=== PATIENT | male | born 1990 | race Hispanic/Latino ===

== ENCOUNTER 2021-07-21 20:18 | Emergency (ER) | payer SELFPAY ==
[2021-07-21] MEDS ORDERED: traMADol HCl 50 MG TAB ONE (21:01)
[2021-07-21] MEDS ORDERED: Ketorolac Tromethamine 30 MG/ML VIAL ONE ×2 (21:02→21:07)
[2021-07-21] MEDS ORDERED: predniSONE 20 MG TAB ONE (21:02)
[2021-07-21] MEDS ORDERED: Cyclobenzaprine 10 MG TAB ONE (21:02)
[2021-07-22] MEDS ORDERED: Lorazepam 2 MG/ML VIAL ONE (04:23)
== END 2021-07-21 21:20 | disposition home or self-care (01) ==
LOC: ERS 20:18
DX: M54.50 Low back pain, unspecified (principal); Z87.891 Personal history of nicotine dependence
CPT/HCPCS: 96372; 99283; J1885; J7512

== ENCOUNTER 2023-02-12 18:21 | Inpatient (IN) | payer SELFPAY ==
[2023-02-12 18:56] LABS: #Basophils 0.1 thou/uL (0.0-0.2); #Monocytes 0.8 thou/uL (0.11-0.59); %Basophils 1.3 % (0.0-1.0); %Eosinophils 0.6 % (0.0-10.0); %Lymphocytes 14.2 % (21.0-51.0); %Neutrophils 72.5 % (42.0-75.0); Hematocrit 37.7 % (42.0-52.0); Hemoglobin 13.5 g/dL (14.0-18.0); Mean Corpuscular HGB CONC 35.8 g/dL (32.0-36.0); Mean Corpuscular Hemoglobin 35.2 pg (27.0-31.0); Mean Corpuscular Volume 98.2 fl (78.0-98.0); Mean Platelet Volume 11.7 fL (7.4-10.4); RBC Distribution Width 12.5 % (11.5-14.5); Red Blood Cell (RBC) Count 3.84 mill/uL (4.70-6.10); White Blood Cell (WBC) Count 6.9 10x3/uL (4.8-10.8)
[2023-02-12 19:03] LABS: Platelet Count 60 10x3/uL (130-400)
[2023-02-12 19:29] LABS: ALT (SGPT) 70 U/L (8-55); AST (SGOT) 277 U/L (5-34); Albumin 3.2 g/dL (3.5-5.0); Alkaline Phosphatase 200 U/L (40-110); Anion Gap 15 mmol/L (10-20); BUN (Urea Nitrogen) 4 mg/dL (8.9-20.6); Bilirubin, Total 8.5 mg/dL (0.2-1.2); Calc. Creatinine Clearance 0 mL/min (70-130); Calcium 8.1 mg/dL (7.8-10.44); Carbon Dioxide 26 mmol/L (22-29); Chloride 94 mmol/L (98-107); Estimated GFR 128; Globulin 4.2 g/dL (2.4-3.5); Glucose 102 mg/dL (70-105); Lipase 109 U/L (8-78); Magnesium 1.2 mg/dL (1.6-2.6); Potassium 3.1 mmol/L (3.5-5.1); Protein, Total 7.4 g/dL (6.0-8.3); Sodium 132 mmol/L (136-145)
[2023-02-12] MEDS ORDERED: Folic Acid 1 MG TAB ONE (20:07)
[2023-02-12] MEDS ORDERED: Potassium Chloride 20 MEQ TAB ONE (20:07)
[2023-02-12] MEDS ORDERED: Magnesium 2 GM/50 ML BAG (IN WATER) ONE (20:08)
[2023-02-12] MEDS ORDERED: LORazepam 2 MG/ML SYR.(CARPUJECT) ONE (20:08)
[2023-02-12] MEDS ORDERED: Thiamine 100 MG TAB ONE (20:08)
[2023-02-12 20:37] LABS: Bacteria/HPF None Seen HPF (None Seen); Bilirubin 3+ (Negative); Blood, Urine 1+ (Negative); CAUTI Indications for Culture Alt mental st,lethar; Clarity Clear (Clear); Glucose, Urine (Dipstick) Normal (Negative); Ketone, Urine Negative (Negative); Leukocyte Negative Leu/uL (Negative); Nitrite Negative (Negative); Protein, Urine (Dipstick) 300 mg/dL (Neg-Trace); RBC/HPF 0-3 HPF (0-3); Specific Gravity, Urine 1.018 (1.002-1.036); Squamous Epithelial 0-3 HPF (0-3); Urobilinogen 6 mg/dL (Less than 2); WBC/HPF 0-3 HPF (0-3)
[2023-02-12 20:38] LABS: Urine Culture Reflex No No
[2023-02-12 20:39] LABS: Bilirubin, Direct 5.7 mg/dL (0.1-0.3)
[2023-02-12 23:22] LABS: INR-International Normal Ratio 1.4; Prothrombin Time 18.1 sec (12.0-14.7)
[2023-02-12 23:23] LABS: PTT 39.6 sec (22.9-36.1)
[2023-02-13] MEDS ORDERED: Lorazepam 2 MG/ML VIAL SLOW IVP PRN (00:23)
[2023-02-13] MEDS ORDERED: Ondansetron PF 4 MG/2 ML Vial IVP PRN (00:30)
[2023-02-13] MEDS ORDERED: Ondansetron ODT 4 MG TAB SL PRN (00:30)
[2023-02-13] MEDS: Lactated Ringer's 1,000 ML IV SCH ×2 (00:46→12:20)
[2023-02-13] MEDS ORDERED: Acetaminophen 325 MG TAB PO PRN (01:14)
[2023-02-13] MEDS ORDERED: Lorazepam 1 MG TAB PO PRN (01:15)
[2023-02-13] MEDS ORDERED: Electrolyte Replacement Protocol 1 EACH FS SCH (01:15)
[2023-02-13] MEDS ORDERED: Lorazepam 2 MG/ML VIAL IM PRN (01:15)
[2023-02-13] MEDS ORDERED: Ondansetron ODT 4 MG TAB PO PRN (01:15)
[2023-02-13] MEDS ORDERED: Thiamine HCl 200 MG/2 ML VIAL SLOW IVP SCH ×2 (01:15→20:30)
[2023-02-13] MEDS ORDERED: Magnesium Sulfate In Water 4 GM in Premix 1 BAG IVPB SCH (01:30)
[2023-02-13] MEDS ORDERED: Potassium Chloride 20 MEQ TAB PO SCH (01:30)
[2023-02-13] MEDS ORDERED: Acetaminophen 500 MG TAB PO PRN (01:30)
[2023-02-13] MEDS: Lorazepam 1 MG TAB PO SCH ×4 (01:48→20:32)
[2023-02-13] MEDS ORDERED: Magnesium 2 GM/50 ML(in water) 2 GM in Premix 1 BAG IVPB SCH ×2 (02:15→14:00)
[2023-02-13 05:04] LABS: #Basophils 0.1 thou/uL (0.0-0.2); #Eosinphils 0.2 thou/uL (0.0-0.7); #Neutrophils 4.7 thou/uL (1.40-6.50); %Eosinophils 2.3 % (0.0-10.0); %Lymphocytes 14.9 % (21.0-51.0); %Monocytes 14.3 % (0.0-10.0); %Neutrophils 67.1 % (42.0-75.0); Hematocrit 34.5 % (42.0-52.0); Hemoglobin 12.2 g/dL (14.0-18.0); Mean Corpuscular HGB CONC 35.4 g/dL (32.0-36.0); Mean Corpuscular Hemoglobin 35.4 pg (27.0-31.0); Mean Platelet Volume 11.8 fL (7.4-10.4); RBC Distribution Width 12.7 % (11.5-14.5); Red Blood Cell (RBC) Count 3.45 mill/uL (4.70-6.10)
[2023-02-13 05:10] LABS: Platelet Count 56 10x3/uL (130-400)
[2023-02-13 05:19] LABS: Phosphorus 2.1 mg/dL (2.3-4.7)
[2023-02-13 05:21] LABS: ALT (SGPT) 65 U/L (8-55); AST (SGOT) 235 U/L (5-34); Albumin 2.8 g/dL (3.5-5.0); Alkaline Phosphatase 168 U/L (40-110); Anion Gap 14 mmol/L (10-20); BUN (Urea Nitrogen) 5 mg/dL (8.9-20.6); Bilirubin, Total 7.7 mg/dL (0.2-1.2); Calc. Creatinine Clearance 237 mL/min (70-130); Calcium 7.5 mg/dL (7.8-10.44); Carbon Dioxide 24 mmol/L (22-29); Chloride 98 mmol/L (98-107); Estimated GFR 131; Globulin 3.7 g/dL (2.4-3.5); Glucose 80 mg/dL (70-105); Lipase 108 U/L (8-78); Potassium 3.4 mmol/L (3.5-5.1); Protein, Total 6.5 g/dL (6.0-8.3); Sodium 133 mmol/L (136-145)
[2023-02-13] MEDS ORDERED: Lorazepam 1 MG TAB PO SCH (08:45)
[2023-02-13] MEDS: Folic Acid 1 MG TAB PO SCH (08:57)
[2023-02-13] MEDS: Multivit, Therapeutic 1 TAB PO SCH (08:57)
[2023-02-13 10:04] LABS: ALT (SGPT) 65 U/L (8-55); AST (SGOT) 238 U/L (5-34); Albumin 2.7 g/dL (3.5-5.0); Alkaline Phosphatase 177 U/L (40-110); Anion Gap 13 mmol/L (10-20); BUN (Urea Nitrogen) 5 mg/dL (8.9-20.6); Calc. Creatinine Clearance 233 mL/min (70-130); Calcium 7.5 mg/dL (7.8-10.44); Carbon Dioxide 22 mmol/L (22-29); Chloride 101 mmol/L (98-107); Estimated GFR 131; Globulin 3.7 g/dL (2.4-3.5); Glucose 82 mg/dL (70-105); Magnesium 1.7 mg/dL (1.6-2.6); Phosphorus 2.2 mg/dL (2.3-4.7); Potassium 3.8 mmol/L (3.5-5.1); Protein, Total 6.4 g/dL (6.0-8.3); Sodium 132 mmol/L (136-145)
[2023-02-13 10:15] VITALS: BMI 30.8
[2023-02-14] MEDS ORDERED: Lorazepam 1 MG TAB PO PRN (01:15)
[2023-02-14] MEDS: Lorazepam 1 MG TAB PO SCH ×3 (01:47→13:40)
[2023-02-14 04:59] LABS: #Basophils 0.1 thou/uL (0.0-0.2); #Eosinphils 0.2 thou/uL (0.0-0.7); #Monocytes 1.1 thou/uL (0.11-0.59); #Neutrophils 4.2 thou/uL (1.40-6.50); %Basophils 0.9 % (0.0-1.0); %Monocytes 15.9 % (0.0-10.0); %Neutrophils 61.9 % (42.0-75.0); Hematocrit 35.7 % (42.0-52.0); Hemoglobin 12.5 g/dL (14.0-18.0); Mean Platelet Volume 11.8 fL (7.4-10.4); RBC Distribution Width 12.7 % (11.5-14.5); Red Blood Cell (RBC) Count 3.57 mill/uL (4.70-6.10); White Blood Cell (WBC) Count 6.7 10x3/uL (4.8-10.8)
[2023-02-14 05:10] LABS: Platelet Count 71 10x3/uL (130-400)
[2023-02-14 05:25] LABS: ALT (SGPT) 61 U/L (8-55); AST (SGOT) 202 U/L (5-34); Albumin 2.7 g/dL (3.5-5.0); Alkaline Phosphatase 201 U/L (40-110); Anion Gap 14 mmol/L (10-20); BUN (Urea Nitrogen) 5 mg/dL (8.9-20.6); Bilirubin, Total 8.6 mg/dL (0.2-1.2); Calc. Creatinine Clearance 222 mL/min (70-130); Calcium 7.6 mg/dL (7.8-10.44); Carbon Dioxide 22 mmol/L (22-29); Chloride 102 mmol/L (98-107); Estimated GFR 129; Globulin 3.6 g/dL (2.4-3.5); Glucose 73 mg/dL (70-105); Magnesium 1.7 mg/dL (1.6-2.6); Potassium 3.8 mmol/L (3.5-5.1); Protein, Total 6.3 g/dL (6.0-8.3); Sodium 134 mmol/L (136-145)
[2023-02-14] MEDS ORDERED: Magnesium 2 GM/50 ML(in water) 2 GM in Premix 1 BAG IVPB SCH (08:00)
[2023-02-14] MEDS: Folic Acid 1 MG TAB PO SCH (09:23)
[2023-02-14] MEDS: Multivit, Therapeutic 1 TAB PO SCH (09:23)
[2023-02-14] MEDS ORDERED: Lorazepam 1 MG TAB PO SCH (09:30)
[2023-02-14 16:09] VITALS: BP 140/80; TEMP 99.2
[2023-02-15] MEDS ORDERED: Lorazepam 0.5 MG TAB PO SCH (01:15)
[2023-02-15] MEDS ORDERED: Lorazepam 1 MG TAB PO PRN (01:15)
[2023-02-16] MEDS ORDERED: Lorazepam 0.5 MG TAB PO PRN (01:15)
[2023-02-16] MEDS ORDERED: Thiamine 100 MG TAB PO SCH (09:00)
[2023-02-16] MEDS ORDERED: FLU VACC QS2023-24(6MOS UP)/PF 60 MCG/0.5 ML SYRINGE IM ONE (09:00)
== END 2023-02-14 17:00 | disposition home or self-care (01) | DRG 897 ==
LOC: ERS 18:21 → ERHOLD 22:08 → 2NO 02-13 00:13
PROVIDERS: ADMIT Internal Medicine; ATTEND Internal Medicine
DX: F10.239 Alcohol dependence with withdrawal, unspecified (principal); K76.6 Portal hypertension; F41.9 Anxiety disorder, unspecified; E87.6 Hypokalemia; E83.42 Hypomagnesemia; G89.29 Other chronic pain; K70.31 Alcoholic cirrhosis of liver with ascites; F12.929 Cannabis use, unspecified with intoxication, unspecified; R74.8 Abnormal levels of other serum enzymes; D69.6 Thrombocytopenia, unspecified; Z87.891 Personal history of nicotine dependence; Z79.899 Other long term (current) drug therapy
CPT/HCPCS: 36415; 76705; 80053; 81001; 82248; 83690; 83735; 84100; 84443; 85025; 85610; 85730; 93005; J2060; J3411; J3475; J7120

== ENCOUNTER 2023-10-19 01:05 | Inpatient (IN) | payer SELFPAY ==
[2023-10-19] MEDS ORDERED: Ibuprofen 800 MG TAB ONE (01:23)
[2023-10-19] MEDS ORDERED: Piperacillin/Tazobactam 4.5 GM VIAL ONE (01:34)
[2023-10-19 02:01] LABS: Hematocrit 34.2 % (42.0-52.0); Hemoglobin 12.7 g/dL (14.0-18.0); Mean Corpuscular HGB CONC 37.1 g/dL (32.0-36.0); Mean Corpuscular Hemoglobin 31.4 pg (27.0-31.0); Mean Corpuscular Volume 84.7 fL (78.0-98.0); Mean Platelet Volume 9.8 fL (7.4-10.4); Platelet Count 194 10x3/uL (130-400); RBC Distribution Width 13.2 % (11.5-14.5); Red Blood Cell (RBC) Count 4.04 mill/uL (4.70-6.10)
[2023-10-19 02:10] LABS: Acetaminophen Less than 10 mcg/mL (10.0-30.0); Alcohol Less than 10.0 mg/dL (Less than 10); Salicylate Less than 8.0 mg/dL (15.0-30.0)
[2023-10-19 02:18] LABS: Influenza A by NAA Not Detected (NotDetected); Influenza B by NAA Not Detected (NotDetected); SARS-CoV-2 NAA Rapid Test Not Detected (NotDetected)
[2023-10-19 02:27] LABS: HBCM Index 0.11 S/CO (0-0.79); HBsAg Index 0.25 S/CO (0-0.99); Hep A IgM AB NONREACTIVE (NonReactive); Hep A IgM S/CO 0.34 S/CO (0-0.79); Hep B Surf Ag NONREACTIVE S/CO (NonReactive); Hep C IgG Ab NONREACTIVE S/CO (NonReactive); Hep C Index 0.12 S/CO (0-0.79); Hepatitis B Core IgM Abs NONREACTIVE S/CO (NonReactive)
[2023-10-19 02:40] LABS: ALT (SGPT) 36 U/L (8-55); AST (SGOT) 63 U/L (5-34); Albumin 2.7 g/dL (3.5-5.0); Alkaline Phosphatase 218 U/L (40-110); Anion Gap 13 mmol/L (10-20); BUN (Urea Nitrogen) 34 mg/dL (8.9-20.6); Bilirubin, Total 4.5 mg/dL (0.2-1.2); Calc. Creatinine Clearance 0 mL/min (70-130); Calcium 7.8 mg/dL (7.8-10.44); Carbon Dioxide 16 mmol/L (22-29); Chloride 85 mmol/L (98-107); Estimated GFR 93; Globulin 3.9 g/dL (2.4-3.5); Glucose 129 mg/dL (70-105); Potassium 4.7 mmol/L (3.5-5.1); Protein, Total 6.6 g/dL (6.0-8.3); Sodium 109 mmol/L (136-145)
[2023-10-19] MEDS ORDERED: cefTRIAXone (ROCEPHIN) 2 GM VIAL ONE (03:09)
[2023-10-19] MEDS ORDERED: Vancomycin 1 GM/200 ML (FROZEN) BAG ONE ×2 (03:09→08:19)
[2023-10-19] MEDS ORDERED: Sodium Chloride 0.9% 100 ML ONE (03:09)
[2023-10-19 03:42] LABS: Eosinophils 1 % (0-10); Lymphocytes 1 % (21-51); Monocytes 15 % (0-10); Neutrophil 75 % (42-75)
[2023-10-19 03:43] LABS: Band 8 % (5-11); Plasma Cells 0 % (0-0); Total Cell Count 100
[2023-10-19 05:59] LABS: Color Of CSF Supernatant COLORLESS (Colorless); Unspun CSF Color COLORLESS (Colorless)
[2023-10-19 06:00] LABS: Tube # 2
[2023-10-19 06:17] LABS: CSF, Glucose 6 mg/dl (40-70); CSF, Protein 61.4 mg/dL (15-40)
[2023-10-19 07:35] LABS: RBC Count-Automated (BF) 104 /cu.mm; WBC/Nucleated-Auto (BF) 219 /cu.mm
[2023-10-19 07:38] LABS: Body Fluid Source Ascites Body Fluid
[2023-10-19 07:39] LABS: Clarity Hazy (Clear); Tube # 3
[2023-10-19 07:40] LABS: BF Color Yellow
[2023-10-19 07:45] LABS: CSF Source CSF
[2023-10-19 07:46] LABS: CSF Source CSF; Clarity Clear (Clear); Tube # 1; Tube # 4
[2023-10-19] MEDS ORDERED: Ondansetron PF 4 MG/2 ML Vial IVP PRN (08:21)
[2023-10-19 08:56] LABS: Sodium 110 mmol/L (136-145)
[2023-10-19 10:13] LABS: HBSAB Concentration 8.73 mIU/mL; Hep B Surf AB GRAYZONE (NonReactive)
[2023-10-19] MEDS ORDERED: Iopamidol-370 76% 500 ML MDV (1 ML CHARGE) ONE (10:34)
[2023-10-19 10:43] LABS: Cell Count Non Hematic 18 %; Lymphocytes 44 %; Segmented Neutrophils 37 %
[2023-10-19 10:46] LABS: Lymphocytes 20 %; Segmented Neutrophils 80 %
[2023-10-19 10:49] VITALS: BMI 31.3
[2023-10-19 10:49] LABS: BF Segmented Neutrophils 58 %; Cell Count Non Hematic 14 %; Lymphocytes 28 %
[2023-10-19] MEDS: Vancomycin 1 GM in Premix 1 BAG IVPB SCH (11:20)
[2023-10-19] MEDS: Acetaminophen/Codeine 30-300mg Tablet PO PRN (11:40)
[2023-10-19] MEDS: Albumin 25% 25 GM (100 mL) BOT IVPB SCH (11:40)
[2023-10-19] MEDS: Famotidine 20 MG TAB PO SCH (11:40)
[2023-10-19] MEDS: Enoxaparin 40 MG (0.4 mL) SYRINGE SC SCH (11:40)
[2023-10-19 12:02] LABS: Bacteria/HPF None Seen HPF (None Seen); Bilirubin Negative (Negative); Blood, Urine 1+ (Negative); CAUTI Indications for Culture Alt mental st,lethar; Clarity Clear (Clear); Glucose, Urine (Dipstick) Normal (Negative); Ketone, Urine Negative (Negative); Leukocyte Negative Leu/uL (Negative); Nitrite Negative (Negative); Protein, Urine (Dipstick) Negative (Neg-Trace); RBC/HPF 0-3 HPF (0-3); Specific Gravity, Urine 1.011 (1.002-1.036); Squamous Epithelial None Seen HPF (0-3); Urobilinogen Normal mg/dL (Less than 2); WBC/HPF 0-3 HPF (0-3); pH, Urine 5.5 (5.0-9.0)
[2023-10-19 12:03] LABS: Amphetamine Not Detected (NotDetected); Barbiturates Screen Not Detected (NotDetected); Benzodiazepine Screen Not Detected (NotDetected); Cocaine Metabolite Screen Not Detected (NotDetected); Methadone Not Detected (NotDetected); Methamphetamine Not Detected (NotDetected); Opiate Screen Not Detected (NotDetected); Oxycodone Screen Not Detected (NotDetected); Phencyclidine (PCP) Not Detected (NotDetected); THC/Cannabinoid Screen Not Detected (NotDetected); Tricyclic Screen Not Detected (NotDetected)
[2023-10-19 12:42] LABS: Strep pneumo Urine Ag NEGATIVE (NEGATIVE)
[2023-10-19 12:43] LABS: Urine Culture Reflex No No
[2023-10-19 12:57] LABS: Creatinine, Urine 28.95 mg/dL (63-166); Protein, Urine Random Quant Less than 10 mg/dL (1-14); Sodium, Urine Less than 20 mmol/L (Not Available)
[2023-10-19 14:13] LABS: Reference Lab Name LABCORP
[2023-10-19 14:32] LABS: Potassium 4.4 mmol/L (3.5-5.1); Sodium 112 mmol/L (136-145)
[2023-10-19] MEDS: cefTRIAXone\\ROCEPHIN 2 GM in Sodium Chloride 0.9% 100 ML IVPB SCH (15:17)
[2023-10-19] MEDS: Acyclovir Sodium 500 mg (10 mL) Vial IVPB SCH (15:17)
[2023-10-19] MEDS: Acyclovir Sodium 730 MG in Sodium Chloride 0.9% 100 ML IVPB SCH (15:56)
[2023-10-19] MEDS ORDERED: Vancomycin (BATCH) 1.5 GM in Premix 1 BAG IVPB SCH (20:00)
[2023-10-19 20:40] LABS: Critical Call Chemistry NUR.GW5 @2040; Potassium 4.8 mmol/L (3.5-5.1); Sodium 118 mmol/L (136-145)
[2023-10-19] MEDS: Acetaminophen 325 MG TAB PO PRN (20:48)
[2023-10-19] MEDS: Vancomycin (BATCH) 1.75 GM in Premix 1 BAG IVPB SCH (20:48)
[2023-10-19] MEDS ORDERED: Acyclovir Sodium 730 MG in Sodium Chloride 0.9% 100 ML IVPB SCH (22:00)
[2023-10-19] MEDS: Acyclovir Sodium 730 MG in Sodium Chloride 0.9% 250 ML 250 ML IVPB SCH (22:02)
[2023-10-20] MEDS ORDERED: cefTRIAXone\\ROCEPHIN 2 GM in Sodium Chloride 0.9% 100 ML IVPB SCH (03:00)
[2023-10-20 05:28] LABS: #Basophils 0.05 10x3/uL (0.0-0.2); %Basophils 0.3 % (0.0-1.0); %Eosinophils 0.6 % (0.0-10.0); %Monocytes 16.8 % (0.0-10.0); %Neutrophils 74.5 % (42.0-75.0); Hematocrit 30.6 % (42.0-52.0); Mean Corpuscular HGB CONC 35.9 g/dL (32.0-36.0); Mean Corpuscular Hemoglobin 32.1 pg (27.0-31.0); Mean Corpuscular Volume 89.2 fL (78.0-98.0); Mean Platelet Volume 9.8 fL (7.4-10.4); Platelet Count 150 10x3/uL (130-400); RBC Distribution Width 13.5 % (11.5-14.5); Red Blood Cell (RBC) Count 3.43 mill/uL (4.70-6.10)
[2023-10-20 06:32] LABS: Anion Gap 13 mmol/L (10-20); BUN (Urea Nitrogen) 26 mg/dL (8.9-20.6); Calc. Creatinine Clearance 189 mL/min (70-130); Calcium 7.4 mg/dL (7.8-10.44); Carbon Dioxide 19 mmol/L (22-29); Chloride 93 mmol/L (98-107); Estimated GFR 122; Glucose 101 mg/dL (70-105); Potassium 4.3 mmol/L (3.5-5.1); Sodium 121 mmol/L (136-145)
[2023-10-20] MEDS: Vancomycin (BATCH) 1.5 GM in Premix 1 BAG IVPB SCH (08:04)
[2023-10-20 18:30] LABS: Potassium 4.4 mmol/L (3.5-5.1); Sodium 122 mmol/L (136-145)
[2023-10-20 20:30] LABS: Magnesium 2.6 mg/dL (1.6-2.6)
[2023-10-21 05:38] LABS: #Basophils 0.06 10x3/uL (0.0-0.2); #Eosinphils Less than 0.03 10x3/uL (0.0-0.7); %Basophils 0.3 % (0.0-1.0); %Lymphocytes 3.3 % (21.0-51.0); %Monocytes 6.9 % (0.0-10.0); %Neutrophils 88.7 % (42.0-75.0); Hematocrit 31.2 % (42.0-52.0); Mean Corpuscular HGB CONC 35.3 g/dL (32.0-36.0); Mean Corpuscular Volume 90.7 fL (78.0-98.0); Mean Platelet Volume 9.6 fL (7.4-10.4); Platelet Count 149 10x3/uL (130-400); RBC Distribution Width 13.9 % (11.5-14.5); Red Blood Cell (RBC) Count 3.44 mill/uL (4.70-6.10)
[2023-10-21 06:03] LABS: Vancomycin, Random 14.4 ug/mL (See Comment)
[2023-10-21 06:06] LABS: ALT (SGPT) 29 U/L (8-55); AST (SGOT) 52 U/L (5-34); Albumin 2.7 g/dL (3.5-5.0); Alkaline Phosphatase 183 U/L (40-110); Anion Gap 11 mmol/L (10-20); BUN (Urea Nitrogen) 19 mg/dL (8.9-20.6); Bilirubin, Total 3.5 mg/dL (0.2-1.2); Calc. Creatinine Clearance 196 mL/min (70-130); Calcium 7.6 mg/dL (7.8-10.44); Carbon Dioxide 17 mmol/L (22-29); Chloride 100 mmol/L (98-107); Estimated GFR 124; Globulin 2.8 g/dL (2.4-3.5); Glucose 103 mg/dL (70-105); Potassium 4.2 mmol/L (3.5-5.1); Protein, Total 5.5 g/dL (6.0-8.3); Sodium 124 mmol/L (136-145)
[2023-10-21] MEDS: Vancomycin (BATCH) 1.75 GM in Premix 1 BAG IVPB SCH (09:03)
[2023-10-21] MEDS: Ibuprofen 200 MG TAB PO SCH (14:35)
[2023-10-21] MEDS: Acetaminophen/Codeine 30-300mg Tablet PO SCH (14:35)
[2023-10-21 20:46] LABS: Magnesium 2.4 mg/dL (1.6-2.6)
[2023-10-22] MEDS: cefTRIAXone (ROCEPHIN) 2 GM VIAL ONE (03:01)
[2023-10-22 12:46] LABS: Vancomycin, Random 32.2 ug/mL (See Comment)
[2023-10-22 12:49] LABS: ALT (SGPT) 30 U/L (8-55); AST (SGOT) 54 U/L (5-34); Albumin 2.7 g/dL (3.5-5.0); Alkaline Phosphatase 196 U/L (40-110); Anion Gap 12 mmol/L (10-20); BUN (Urea Nitrogen) 19 mg/dL (8.9-20.6); Bilirubin, Total 3.4 mg/dL (0.2-1.2); Calc. Creatinine Clearance 174 mL/min (70-130); Calcium 7.9 mg/dL (7.8-10.44); Carbon Dioxide 19 mmol/L (22-29); Chloride 101 mmol/L (98-107); Estimated GFR 119; Globulin 3.5 g/dL (2.4-3.5); Glucose 122 mg/dL (70-105); Protein, Total 6.2 g/dL (6.0-8.3); Sodium 128 mmol/L (136-145)
[2023-10-22 12:50] LABS: ALT (SGPT) 30 U/L (8-55); AST (SGOT) 51 U/L (5-34); Albumin 2.7 g/dL (3.5-5.0); Alkaline Phosphatase 195 U/L (40-110); Anion Gap 9 mmol/L (10-20); Bilirubin, Total 3.4 mg/dL (0.2-1.2); Calc. Creatinine Clearance 168 mL/min (70-130); Calcium 7.9 mg/dL (7.8-10.44); Carbon Dioxide 19 mmol/L (22-29); Chloride 103 mmol/L (98-107); Estimated GFR 118; Globulin 3.4 g/dL (2.4-3.5); Glucose 122 mg/dL (70-105); Potassium 4.1 mmol/L (3.5-5.1); Protein, Total 6.1 g/dL (6.0-8.3); Sodium 127 mmol/L (136-145)
[2023-10-22 13:04] LABS: BUN (Urea Nitrogen) 20 mg/dL (8.9-20.6)
[2023-10-22 13:17] LABS: Hematocrit 35.8 % (42.0-52.0); Hemoglobin 12.2 g/dL (14.0-18.0); Mean Corpuscular HGB CONC 34.1 g/dL (32.0-36.0); Mean Corpuscular Hemoglobin 31.7 pg (27.0-31.0); Mean Platelet Volume 9.4 fL (7.4-10.4); Platelet Count 177 10x3/uL (130-400); RBC Distribution Width 14.4 % (11.5-14.5); Red Blood Cell (RBC) Count 3.85 mill/uL (4.70-6.10)
[2023-10-22 13:53] LABS: Band 13 % (5-11); Eosinophils 1 % (0-10); Large Platelets 0.9 % (0-5); Lymphocytes 6 % (21-51); Macrocytosis SLIGHT = 6-15 cells HPF (0-5); Monocytes 10 % (0-10); Neutrophil 69 % (42-75); Plasma Cells 1 % (0-0); Platelet Adequacy Comment Platelets Normal; Polychromasia SLIGHT = 2-3 cells HPF (0-2); Smudge Cells 3.5 %
[2023-10-22 20:08] LABS: Magnesium 2.3 mg/dL (1.6-2.6)
[2023-10-22] MEDS: Vancomycin (BATCH) 1.5 GM in Premix 1 BAG IVPB SCH (22:11)
[2023-10-23 08:24] LABS: #Basophils 0.06 10x3/uL (0.0-0.2); %Basophils 0.3 % (0.0-1.0); %Eosinophils 0.9 % (0.0-10.0); %Lymphocytes 9.1 % (21.0-51.0); %Monocytes 11.3 % (0.0-10.0); %Neutrophils 77.3 % (42.0-75.0); Hematocrit 30.7 % (42.0-52.0); Hemoglobin 10.8 g/dL (14.0-18.0); Mean Corpuscular HGB CONC 35.2 g/dL (32.0-36.0); Mean Corpuscular Volume 91.1 fL (78.0-98.0); Mean Platelet Volume 9.8 fL (7.4-10.4); Platelet Count 175 10x3/uL (130-400); RBC Distribution Width 14.1 % (11.5-14.5); Red Blood Cell (RBC) Count 3.37 mill/uL (4.70-6.10)
[2023-10-23 08:41] LABS: Vancomycin, Random 15.9 ug/mL (See Comment)
[2023-10-23 08:42] LABS: ALT (SGPT) 30 U/L (8-55); AST (SGOT) 52 U/L (5-34); Albumin 2.4 g/dL (3.5-5.0); Alkaline Phosphatase 206 U/L (40-110); Anion Gap 10 mmol/L (10-20); BUN (Urea Nitrogen) 16 mg/dL (8.9-20.6); Bilirubin, Total 2.7 mg/dL (0.2-1.2); Calc. Creatinine Clearance 184 mL/min (70-130); Calcium 7.5 mg/dL (7.8-10.44); Carbon Dioxide 18 mmol/L (22-29); Chloride 102 mmol/L (98-107); Estimated GFR 121; Globulin 3.2 g/dL (2.4-3.5); Glucose 90 mg/dL (70-105); Potassium 4.1 mmol/L (3.5-5.1); Protein, Total 5.6 g/dL (6.0-8.3); Sodium 126 mmol/L (136-145)
[2023-10-23] MEDS: Albumin 25% 25 GM (100 mL) BOT IVPB SCH (12:02)
[2023-10-24] MEDS: hydrALAZINE 20 MG/ML VIAL SLOW IVP PRN (00:35)
[2023-10-24] MEDS ORDERED: Labetalol HCl 100 MG/20 ML VIAL SLOW IVP PRN (02:42)
[2023-10-24 02:58] LABS: #Basophils 0.06 10x3/uL (0.0-0.2); %Basophils 0.4 % (0.0-1.0); %Eosinophils 0.6 % (0.0-10.0); %Lymphocytes 8.8 % (21.0-51.0); %Monocytes 10.5 % (0.0-10.0); %Neutrophils 78.8 % (42.0-75.0); Hematocrit 29.3 % (42.0-52.0); Hemoglobin 10.4 g/dL (14.0-18.0); Mean Corpuscular HGB CONC 35.5 g/dL (32.0-36.0); Mean Corpuscular Hemoglobin 32.2 pg (27.0-31.0); Mean Corpuscular Volume 90.7 fL (78.0-98.0); Mean Platelet Volume 8.8 fL (7.4-10.4); Platelet Count 168 10x3/uL (130-400); Red Blood Cell (RBC) Count 3.23 mill/uL (4.70-6.10)
[2023-10-24 03:15] LABS: Lactic Acid 1.3 mmol/L (0.5-2.2)
[2023-10-24 03:41] LABS: ALT (SGPT) 32 U/L (8-55); AST (SGOT) 57 U/L (5-34); Alkaline Phosphatase 191 U/L (40-110); Anion Gap 12 mmol/L (10-20); BUN (Urea Nitrogen) 16 mg/dL (8.9-20.6); Bilirubin, Total 3.1 mg/dL (0.2-1.2); Calc. Creatinine Clearance 172 mL/min (70-130); Calcium 7.8 mg/dL (7.8-10.44); Carbon Dioxide 16 mmol/L (22-29); Chloride 103 mmol/L (98-107); Estimated GFR 119; Glucose 111 mg/dL (70-105); Sodium 127 mmol/L (136-145)
[2023-10-24] MEDS: Furosemide 40 MG (4 mL) VIAL SLOW IVP SCH ×2 (06:08→10:03)
[2023-10-24] MEDS ORDERED: Iopamidol-370 76% 500 ML MDV (1 ML CHARGE) ONE (11:01)
[2023-10-24] MEDS ORDERED: HYDROmorphone 0.5 MG/0.5 ML SYRINGE SLOW IVP PRN (12:08)
[2023-10-24 16:40] LABS: Potassium 3.7 mmol/L (3.5-5.1); Sodium 126 mmol/L (136-145)
[2023-10-25] MEDS: Furosemide 40 MG (4 mL) VIAL SLOW IVP SCH (06:36)
[2023-10-25 07:21] LABS: #Basophils 0.06 10x3/uL (0.0-0.2); %Basophils 0.4 % (0.0-1.0); %Eosinophils 1.3 % (0.0-10.0); %Lymphocytes 8.5 % (21.0-51.0); Hematocrit 30.5 % (42.0-52.0); Hemoglobin 10.6 g/dL (14.0-18.0); Mean Corpuscular HGB CONC 34.8 g/dL (32.0-36.0); Mean Corpuscular Hemoglobin 31.9 pg (27.0-31.0); Mean Corpuscular Volume 91.9 fL (78.0-98.0); Mean Platelet Volume 9.2 fL (7.4-10.4); Platelet Count 182 10x3/uL (130-400); RBC Distribution Width 14.2 % (11.5-14.5); Red Blood Cell (RBC) Count 3.32 mill/uL (4.70-6.10)
[2023-10-25 07:44] LABS: Vancomycin, Random 17.6 ug/mL (See Comment)
[2023-10-25 07:45] LABS: ALT (SGPT) 30 U/L (8-55); AST (SGOT) 54 U/L (5-34); Alkaline Phosphatase 181 U/L (40-110); Anion Gap 10 mmol/L (10-20); BUN (Urea Nitrogen) 15 mg/dL (8.9-20.6); Bilirubin, Total 3.2 mg/dL (0.2-1.2); Calc. Creatinine Clearance 190 mL/min (70-130); Carbon Dioxide 18 mmol/L (22-29); Chloride 104 mmol/L (98-107); Estimated GFR 122; Globulin 3.1 g/dL (2.4-3.5); Glucose 103 mg/dL (70-105); Potassium 3.6 mmol/L (3.5-5.1); Protein, Total 6.1 g/dL (6.0-8.3); Sodium 128 mmol/L (136-145)
[2023-10-25] MEDS: Albumin 25% 25 GM (100 mL) BOT IVPB SCH (10:30)
[2023-10-25] MEDS: HYDROcodone/Acetaminophen 5/325 mg Tablet PO PRN (17:45)
[2023-10-26 06:00] LABS: #Basophils 0.04 10x3/uL (0.0-0.2); %Basophils 0.3 % (0.0-1.0); %Eosinophils 1.7 % (0.0-10.0); %Lymphocytes 8.6 % (21.0-51.0); %Neutrophils 75.7 % (42.0-75.0); Mean Corpuscular HGB CONC 34.5 g/dL (32.0-36.0); Mean Corpuscular Hemoglobin 32.3 pg (27.0-31.0); Mean Corpuscular Volume 93.5 fL (78.0-98.0); Mean Platelet Volume 9.2 fL (7.4-10.4); Platelet Count 156 10x3/uL (130-400); RBC Distribution Width 14.6 % (11.5-14.5)
[2023-10-26 06:27] LABS: ALT (SGPT) 29 U/L (8-55); AST (SGOT) 49 U/L (5-34); Albumin 2.7 g/dL (3.5-5.0); Alkaline Phosphatase 158 U/L (40-110); Anion Gap 11 mmol/L (10-20); BUN (Urea Nitrogen) 14 mg/dL (8.9-20.6); Bilirubin, Total 3.1 mg/dL (0.2-1.2); Calc. Creatinine Clearance 199 mL/min (70-130); Calcium 7.8 mg/dL (7.8-10.44); Carbon Dioxide 20 mmol/L (22-29); Chloride 108 mmol/L (98-107); Estimated GFR 124; Globulin 3.1 g/dL (2.4-3.5); Glucose 94 mg/dL (70-105); Magnesium 1.8 mg/dL (1.6-2.6); Potassium 3.8 mmol/L (3.5-5.1); Protein, Total 5.8 g/dL (6.0-8.3); Sodium 135 mmol/L (136-145)
[2023-10-26] MEDS ORDERED: Sodium Bicarbonate 2.5 MEQ/5 ML SDV ONE (08:58)
[2023-10-26] MEDS ORDERED: Lidocaine 1% PF 5 ML VIAL ONE (08:58)
[2023-10-26] MEDS ORDERED: Iopamidol 30 ML ONE (09:45)
[2023-10-26 17:14] VITALS: BMI 31.8
[2023-10-27 06:36] LABS: #Basophils 0.04 10x3/uL (0.0-0.2); %Basophils 0.3 % (0.0-1.0); %Eosinophils 1.5 % (0.0-10.0); %Lymphocytes 10.4 % (21.0-51.0); %Monocytes 14.2 % (0.0-10.0); Hemoglobin 9.6 g/dL (14.0-18.0); Mean Corpuscular HGB CONC 34.3 g/dL (32.0-36.0); Mean Corpuscular Hemoglobin 32.5 pg (27.0-31.0); Mean Corpuscular Volume 94.9 fL (78.0-98.0); Mean Platelet Volume 9.7 fL (7.4-10.4); Platelet Count 146 10x3/uL (130-400); RBC Distribution Width 14.7 % (11.5-14.5); Red Blood Cell (RBC) Count 2.95 mill/uL (4.70-6.10)
[2023-10-27 06:57] LABS: ALT (SGPT) 33 U/L (8-55); AST (SGOT) 55 U/L (5-34); Albumin 2.6 g/dL (3.5-5.0); Alkaline Phosphatase 150 U/L (40-110); Anion Gap 11 mmol/L (10-20); BUN (Urea Nitrogen) 15 mg/dL (8.9-20.6); Bilirubin, Total 2.9 mg/dL (0.2-1.2); Calc. Creatinine Clearance 197 mL/min (70-130); Calcium 7.9 mg/dL (7.8-10.44); Carbon Dioxide 22 mmol/L (22-29); Chloride 106 mmol/L (98-107); Estimated GFR 123; Globulin 3.2 g/dL (2.4-3.5); Glucose 89 mg/dL (70-105); Potassium 4.1 mmol/L (3.5-5.1); Protein, Total 5.8 g/dL (6.0-8.3); Sodium 135 mmol/L (136-145)
[2023-10-28 05:55] LABS: #Basophils 0.06 10x3/uL (0.0-0.2); %Basophils 0.5 % (0.0-1.0); %Eosinophils 1.5 % (0.0-10.0); %Lymphocytes 9.8 % (21.0-51.0); %Monocytes 12.1 % (0.0-10.0); %Neutrophils 75.5 % (42.0-75.0); Hematocrit 28.2 % (42.0-52.0); Hemoglobin 9.7 g/dL (14.0-18.0); Mean Corpuscular HGB CONC 34.4 g/dL (32.0-36.0); Mean Corpuscular Hemoglobin 32.6 pg (27.0-31.0); Mean Corpuscular Volume 94.6 fL (78.0-98.0); Mean Platelet Volume 9.6 fL (7.4-10.4); Platelet Count 137 10x3/uL (130-400); RBC Distribution Width 14.9 % (11.5-14.5); Red Blood Cell (RBC) Count 2.98 mill/uL (4.70-6.10)
[2023-10-28 06:15] LABS: ALT (SGPT) 35 U/L (8-55); AST (SGOT) 62 U/L (5-34); Albumin 2.6 g/dL (3.5-5.0); Alkaline Phosphatase 160 U/L (40-110); Anion Gap 11 mmol/L (10-20); BUN (Urea Nitrogen) 14 mg/dL (8.9-20.6); Bilirubin, Total 2.5 mg/dL (0.2-1.2); Calc. Creatinine Clearance 205 mL/min (70-130); Calcium 7.9 mg/dL (7.8-10.44); Carbon Dioxide 22 mmol/L (22-29); Chloride 105 mmol/L (98-107); Estimated GFR 125; Globulin 3.4 g/dL (2.4-3.5); Glucose 88 mg/dL (70-105); Potassium 4.1 mmol/L (3.5-5.1); Sodium 134 mmol/L (136-145)
[2023-10-28] MEDS: Furosemide 40 MG TAB PO SCH (14:35)
[2023-10-28] MEDS: Albumin 25% 25 GM (100 mL) BOT IVPB SCH (17:42)
[2023-10-29 05:19] LABS: ALT (SGPT) 30 U/L (8-55); AST (SGOT) 54 U/L (5-34); Albumin 2.8 g/dL (3.5-5.0); Alkaline Phosphatase 146 U/L (40-110); Anion Gap 11 mmol/L (10-20); BUN (Urea Nitrogen) 16 mg/dL (8.9-20.6); Bilirubin, Total 2.7 mg/dL (0.2-1.2); Calc. Creatinine Clearance 202 mL/min (70-130); Carbon Dioxide 21 mmol/L (22-29); Chloride 105 mmol/L (98-107); Estimated GFR 124; Glucose 82 mg/dL (70-105); Potassium 4.2 mmol/L (3.5-5.1); Protein, Total 5.8 g/dL (6.0-8.3); Sodium 133 mmol/L (136-145)
[2023-10-29] MEDS: Folic Acid/Vit B Comp W-C PO SCH (08:47)
[2023-10-29] MEDS: Thiamine 100 MG TAB PO SCH (08:47)
[2023-10-29 09:02] LABS: #Basophils 0.04 10x3/uL (0.0-0.2); %Basophils 0.3 % (0.0-1.0); %Eosinophils 1.7 % (0.0-10.0); %Neutrophils 77.5 % (42.0-75.0); Hematocrit 28.1 % (42.0-52.0); Hemoglobin 9.8 g/dL (14.0-18.0); Mean Corpuscular HGB CONC 34.9 g/dL (32.0-36.0); Mean Corpuscular Volume 94.6 fL (78.0-98.0); Mean Platelet Volume 9.7 fL (7.4-10.4); Platelet Count 127 10x3/uL (130-400); RBC Distribution Width 14.9 % (11.5-14.5); Red Blood Cell (RBC) Count 2.97 mill/uL (4.70-6.10)
[2023-10-30 04:34] LABS: #Basophils 0.04 10x3/uL (0.0-0.2); %Basophils 0.4 % (0.0-1.0); %Eosinophils 3.1 % (0.0-10.0); %Lymphocytes 12.2 % (21.0-51.0); %Neutrophils 70.7 % (42.0-75.0); Hematocrit 26.4 % (42.0-52.0); Mean Corpuscular HGB CONC 34.1 g/dL (32.0-36.0); Mean Corpuscular Hemoglobin 32.3 pg (27.0-31.0); Mean Corpuscular Volume 94.6 fL (78.0-98.0); Mean Platelet Volume 10.2 fL (7.4-10.4); Platelet Count 130 10x3/uL (130-400); Red Blood Cell (RBC) Count 2.79 mill/uL (4.70-6.10)
[2023-10-30 04:55] LABS: ALT (SGPT) 27 U/L (8-55); AST (SGOT) 45 U/L (5-34); Albumin 2.6 g/dL (3.5-5.0); Alkaline Phosphatase 150 U/L (40-110); Anion Gap 11 mmol/L (10-20); BUN (Urea Nitrogen) 15 mg/dL (8.9-20.6); Bilirubin, Total 2.4 mg/dL (0.2-1.2); Calc. Creatinine Clearance 205 mL/min (70-130); Carbon Dioxide 21 mmol/L (22-29); Chloride 104 mmol/L (98-107); Estimated GFR 125; Globulin 3.2 g/dL (2.4-3.5); Glucose 82 mg/dL (70-105); Potassium 4.2 mmol/L (3.5-5.1); Protein, Total 5.8 g/dL (6.0-8.3); Sodium 132 mmol/L (136-145)
[2023-10-30 20:19] VITALS: TEMP 99.1
[2023-10-30 20:27] VITALS: BP 173/69
== END 2023-10-30 20:50 | disposition home or self-care (01) | DRG 871 ==
LOC: ERS 01:05 → ERHOLD 07:28 → IMCU/EMU 10:44 → T4-A 10-26 17:05
PROVIDERS: ADMIT Student in an Organized Health Care Education/Training Program; ATTEND Internal Medicine
PROC: 3E03329 Introduction of Other Anti-infective into Peripheral Vein, Percutaneous Approach (ICD-10-PCS; 2023-10-19)
PROC: 02HV33Z Insertion of Infusion Device into Superior Vena Cava, Percutaneous Approach (ICD-10-PCS; principal; 2023-10-26)
PROC: B5181ZA Fluoroscopy of Superior Vena Cava using Low Osmolar Contrast, Guidance (ICD-10-PCS; 2023-10-26)
PROC: 3E04329 Introduction of Other Anti-infective into Central Vein, Percutaneous Approach (ICD-10-PCS; 2023-10-26)
PROC: B548ZZA Ultrasonography of Superior Vena Cava, Guidance (ICD-10-PCS; 2023-10-26)
PROC: 30233J1 Transfusion of Nonautologous Serum Albumin into Peripheral Vein, Percutaneous Approach (ICD-10-PCS; 2023-10-29)
DX: A40.8 Other streptococcal sepsis (principal); G03.9 Meningitis, unspecified; G93.41 Metabolic encephalopathy; G04.90 Encephalitis and encephalomyelitis, unspecified; J18.9 Pneumonia, unspecified organism; R18.8 Other ascites; E87.1 Hypo-osmolality and hyponatremia; K82.8 Other specified diseases of gallbladder; I27.20 Pulmonary hypertension, unspecified; R74.01 Elevation of levels of liver transaminase levels; B00.1 Herpesviral vesicular dermatitis; K70.30 Alcoholic cirrhosis of liver without ascites; E87.6 Hypokalemia; E88.09 Other disorders of plasma-protein metabolism, not elsewhere classified
CPT/HCPCS: 36415; 36416; 36569; 70450; 71045; 71270; 74177; 76705; 76937; 77001; 80048; 80053; 80074; 80202; 80306; 80307; 81001; 82533; 82570; 82945; 83605; 83735; 83880; 83930; 83935; 84145; 84156; 84157; 84300; 84443; 85025; 85060; 86141; 86706; 87040; 87070; 87077; 87149; 87186; 87205; 87449; 89051; 93005; 93306; 93970; 96374; 96375; 96376; 97139; C1751; J0133; J0360; J0696; J1650; J1940; J2543; J3370; J3370-JW; J3490; J7050; P9047; Q9967

== ENCOUNTER 2024-01-07 20:43 | Inpatient (IN) | payer SELFPAY ==
[2024-01-07 21:28] LABS: #Basophils 0.03 10x3/uL (0.0-0.2); %Basophils 0.6 % (0.0-1.0); %Eosinophils 0.8 % (0.0-10.0); %Lymphocytes 9.8 % (21.0-51.0); %Monocytes 12.1 % (0.0-10.0); %Neutrophils 76.5 % (42.0-75.0); Hematocrit 23.4 % (42.0-52.0); Hemoglobin 7.7 g/dL (14.0-18.0); Mean Corpuscular HGB CONC 32.9 g/dL (32.0-36.0); Mean Corpuscular Hemoglobin 32.6 pg (27.0-31.0); Mean Corpuscular Volume 99.2 fL (78.0-98.0); Mean Platelet Volume 11.6 fL (7.4-10.4); Platelet Count 84 10x3/uL (130-400); RBC Distribution Width 14.6 % (11.5-14.5); Red Blood Cell (RBC) Count 2.36 mill/uL (4.70-6.10)
[2024-01-07] MEDS ORDERED: Acetaminophen 325 MG TAB ONE (21:30)
[2024-01-07] MEDS ORDERED: Cefepime 2 GM VIAL ONE (21:30)
[2024-01-07] MEDS ORDERED: Sodium Chloride 0.9% 100 ML ONE (21:30)
[2024-01-07 21:49] LABS: ALT (SGPT) 22 U/L (8-55); AST (SGOT) 61 U/L (5-34); Albumin 2.7 g/dL (3.5-5.0); Alkaline Phosphatase 143 U/L (40-110); Anion Gap 9 mmol/L (10-20); BUN (Urea Nitrogen) 10 mg/dL (8.9-20.6); Bilirubin, Total 3.9 mg/dL (0.2-1.2); Calc. Creatinine Clearance 0 mL/min (70-130); Calcium 8.1 mg/dL (7.8-10.44); Carbon Dioxide 21 mmol/L (22-29); Chloride 106 mmol/L (98-107); Estimated GFR 124; Globulin 3.3 g/dL (2.4-3.5); Glucose 111 mg/dL (70-105); Magnesium 1.7 mg/dL (1.6-2.6); Potassium 3.9 mmol/L (3.5-5.1); Protein, Total 6.1 g/dL (6.0-8.3); Sodium 132 mmol/L (136-145)
[2024-01-07 21:50] LABS: Troponin I 0.077 ng/mL (< 0.028)
[2024-01-07] MEDS ORDERED: Furosemide 40 MG (4 mL) VIAL ONE (22:14)
[2024-01-07] MEDS ORDERED: Ondansetron PF 4 MG/2 ML Vial IVP PRN (23:47)
[2024-01-07] MEDS ORDERED: Ondansetron ODT 4 MG TAB PO PRN (23:47)
[2024-01-07] MEDS ORDERED: Acetaminophen 325 MG TAB PO PRN (23:47)
[2024-01-08 00:38] LABS: Bacteria/HPF None Seen HPF (None Seen); Bilirubin Negative (Negative); Blood, Urine 1+ (Negative); CAUTI Indications for Culture Pelvic or flank pain; Clarity Clear (Clear); Glucose, Urine (Dipstick) Normal (Negative); Ketone, Urine Negative (Negative); Leukocyte Negative Leu/uL (Negative); Nitrite Negative (Negative); Protein, Urine (Dipstick) Negative (Neg-Trace); RBC/HPF 0-3 HPF (0-3); Specific Gravity, Urine 1.002 (1.002-1.036); Squamous Epithelial None Seen HPF (0-3); Urobilinogen Normal mg/dL (Less than 2); WBC/HPF 0-3 HPF (0-3); pH, Urine 5.5 (5.0-9.0)
[2024-01-08 00:40] LABS: Urine Culture Reflex No No
[2024-01-08 03:03] LABS: Legionella Urinary Ag Negative (Negative); Strep pneumo Urine Ag NEGATIVE (NEGATIVE)
[2024-01-08 03:29] VITALS: BMI 35.9
[2024-01-08] MEDS: Vancomycin (BATCH) 2.5 GM in Premix 1 BAG IVPB SCH (03:29)
[2024-01-08] MEDS: Magnesium 2 GM/50 ML(in water) 2 GM in Premix 1 BAG IVPB SCH (03:30)
[2024-01-08] MEDS ORDERED: Magnesium 2 GM/50 ML BAG (IN WATER) ONE (03:41)
[2024-01-08] MEDS ORDERED: Furosemide 40 MG (4 mL) VIAL ONE (05:20)
[2024-01-08] MEDS: Furosemide 40 MG (4 mL) VIAL SLOW IVP SCH (05:27)
[2024-01-08] MEDS: Vancomycin (BATCH) 1.25 GM in Premix 1 BAG IVPB SCH (05:27)
[2024-01-08 06:27] LABS: Hematocrit 24.7 % (42.0-52.0); Hemoglobin 8.1 g/dL (14.0-18.0); Mean Corpuscular HGB CONC 32.8 g/dL (32.0-36.0); Mean Corpuscular Volume 97.6 fL (78.0-98.0); Mean Platelet Volume 11.9 fL (7.4-10.4); Platelet Count 76 10x3/uL (130-400); RBC Distribution Width 14.7 % (11.5-14.5); Red Blood Cell (RBC) Count 2.53 mill/uL (4.70-6.10)
[2024-01-08 06:29] LABS: ALT (SGPT) 22 U/L (8-55); AST (SGOT) 60 U/L (5-34); Albumin 2.6 g/dL (3.5-5.0); Alkaline Phosphatase 140 U/L (40-110); Anion Gap 10 mmol/L (10-20); BUN (Urea Nitrogen) 10 mg/dL (8.9-20.6); Bilirubin, Total 3.9 mg/dL (0.2-1.2); Calc. Creatinine Clearance 235 mL/min (70-130); Carbon Dioxide 20 mmol/L (22-29); Chloride 107 mmol/L (98-107); Estimated GFR 125; Globulin 3.5 g/dL (2.4-3.5); Glucose 99 mg/dL (70-105); Potassium 3.6 mmol/L (3.5-5.1); Protein, Total 6.1 g/dL (6.0-8.3); Sodium 133 mmol/L (136-145)
[2024-01-08 06:52] LABS: Band 2 % (5-11); Eosinophils 5 % (0-10); Large Platelets 2.9 % (0-5); Lymphocytes 7 % (21-51); Monocytes 7 % (0-10); Neutrophil 77 % (42-75); Platelet Adequacy Comment Platelets Decreased; Polychromasia SLIGHT = 2-3 cells HPF (0-2); Schistocytes SLIGHT = 2-5 cells HPF (0-1); Smudge Cells 7.8 %
[2024-01-08] MEDS ORDERED: Metoprolol Tartrate 25 MG TAB ONE (09:05)
[2024-01-08] MEDS ORDERED: Aspirin 325 MG TAB ONE (09:05)
[2024-01-08] MEDS ORDERED: Sodium Chloride 0.9% 100 ML ONE (09:05)
[2024-01-08] MEDS ORDERED: CEFAZOLIN 2 GM VIAL ONE (09:05)
[2024-01-08] MEDS: Metoprolol Tartrate 25 MG TAB PO SCH (09:19)
[2024-01-08] MEDS: Aspirin 325 mg Enteric Coated Tablet PO SCH (09:19)
[2024-01-08] MEDS: Cefepime 2 GM in Sodium Chloride 0.9% 100 ML IVPB SCH (09:19)
[2024-01-08 17:20] LABS: Bilirubin Negative (Negative); Blood, Urine 1+ (Negative); CAUTI Indications for Culture Fever or rigors; Clarity Clear (Clear); Glucose, Urine (Dipstick) Normal (Negative); Ketone, Urine Negative (Negative); Leukocyte Negative Leu/uL (Negative); Nitrite Negative (Negative); Protein, Urine (Dipstick) 10 mg/dL (Neg-Trace); Specific Gravity, Urine 1.019 (1.002-1.036); Squamous Epithelial 0-3 HPF (0-3); Urobilinogen Normal mg/dL (Less than 2); WBC/HPF 0-3 HPF (0-3); pH, Urine 5.5 (5.0-9.0)
[2024-01-08 17:27] LABS: Bacteria/HPF 1+ HPF (None Seen)
[2024-01-08 17:29] LABS: Urine Culture Reflex No No
[2024-01-09] MEDS: Melatonin 3 MG TAB PO SCH (01:58)
[2024-01-09 04:49] LABS: #Basophils 0.03 10x3/uL (0.0-0.2); %Basophils 0.6 % (0.0-1.0); %Eosinophils 4.2 % (0.0-10.0); %Lymphocytes 16.5 % (21.0-51.0); %Monocytes 14.5 % (0.0-10.0); Hematocrit 23.8 % (42.0-52.0); Hemoglobin 7.9 g/dL (14.0-18.0); Mean Corpuscular HGB CONC 33.2 g/dL (32.0-36.0); Mean Corpuscular Volume 96.4 fL (78.0-98.0); Mean Platelet Volume 11.6 fL (7.4-10.4); Platelet Count 76 10x3/uL (130-400); RBC Distribution Width 14.6 % (11.5-14.5); Red Blood Cell (RBC) Count 2.47 mill/uL (4.70-6.10)
[2024-01-09 04:58] LABS: ALT (SGPT) 18 U/L (8-55); AST (SGOT) 53 U/L (5-34); Albumin 2.5 g/dL (3.5-5.0); Alkaline Phosphatase 139 U/L (40-110); Anion Gap 8 mmol/L (10-20); BUN (Urea Nitrogen) 11 mg/dL (8.9-20.6); Calc. Creatinine Clearance 249 mL/min (70-130); Calcium 8.1 mg/dL (7.8-10.44); Carbon Dioxide 23 mmol/L (22-29); Chloride 107 mmol/L (98-107); Estimated GFR 127; Globulin 3.3 g/dL (2.4-3.5); Glucose 86 mg/dL (70-105); Magnesium 1.8 mg/dL (1.6-2.6); Potassium 3.6 mmol/L (3.5-5.1); Protein, Total 5.8 g/dL (6.0-8.3); Sodium 134 mmol/L (136-145)
[2024-01-09] MEDS: Lactated Ringer's 1,000 ML IV SCH (09:09)
[2024-01-09] MEDS: Gabapentin 300 MG CAP PO SCH (09:09)
[2024-01-09 11:23] LABS: HIV (1/2) Antibody/Antigen NONREACTIVE (NonReactive); HIV 1/2 INDEX 0.06 S/CO (<1.00)
[2024-01-09] MEDS: Albumin 25% 25 GM (100 mL) BOT IVPB SCH (11:49)
[2024-01-09] MEDS ORDERED: Polyethylene Glycol 3350 17 GM Packet PO PRN (16:26)
[2024-01-09] MEDS ORDERED: Melatonin 3 MG TAB PO PRN (16:26)
[2024-01-10 06:13] LABS: #Basophils 0.03 10x3/uL (0.0-0.2); %Basophils 0.6 % (0.0-1.0); %Eosinophils 4.9 % (0.0-10.0); %Lymphocytes 21.5 % (21.0-51.0); %Monocytes 14.1 % (0.0-10.0); %Neutrophils 58.7 % (42.0-75.0); Hematocrit 23.5 % (42.0-52.0); Hemoglobin 7.8 g/dL (14.0-18.0); Mean Corpuscular HGB CONC 33.2 g/dL (32.0-36.0); Mean Corpuscular Hemoglobin 31.8 pg (27.0-31.0); Mean Corpuscular Volume 95.9 fL (78.0-98.0); Mean Platelet Volume 11.8 fL (7.4-10.4); Platelet Count 81 10x3/uL (130-400); RBC Distribution Width 14.7 % (11.5-14.5); Red Blood Cell (RBC) Count 2.45 mill/uL (4.70-6.10)
[2024-01-10 07:07] LABS: ALT (SGPT) 16 U/L (8-55); AST (SGOT) 49 U/L (5-34); Albumin 2.7 g/dL (3.5-5.0); Alkaline Phosphatase 134 U/L (40-110); Anion Gap 6 mmol/L (10-20); BUN (Urea Nitrogen) 11 mg/dL (8.9-20.6); Bilirubin, Total 2.8 mg/dL (0.2-1.2); Calc. Creatinine Clearance 282 mL/min (70-130); Calcium 8.1 mg/dL (7.8-10.44); Carbon Dioxide 24 mmol/L (22-29); Chloride 108 mmol/L (98-107); Estimated GFR 132; Globulin 3.1 g/dL (2.4-3.5); Glucose 92 mg/dL (70-105); Magnesium 1.9 mg/dL (1.6-2.6); Potassium 3.6 mmol/L (3.5-5.1); Protein, Total 5.8 g/dL (6.0-8.3); Sodium 134 mmol/L (136-145)
[2024-01-12 15:01] VITALS: BP 106/60; TEMP 97.6
== END 2024-01-12 17:40 | disposition home or self-care (01) | DRG 865 ==
LOC: ERS 20:43 → ERHOLD 23:10 → 2NO 01-08 10:58 → ERHOLD 01-08 10:58 → 2NO 01-08 14:10
PROVIDERS: ADMIT Internal Medicine; ATTEND Internal Medicine
DX: B34.9 Viral infection, unspecified (principal); I50.33 Acute on chronic diastolic (congestive) heart failure; E87.1 Hypo-osmolality and hyponatremia; K70.30 Alcoholic cirrhosis of liver without ascites; D69.59 Other secondary thrombocytopenia; D64.9 Anemia, unspecified; E66.9 Obesity, unspecified; Z68.35 Body mass index [BMI] 35.0-35.9, adult; Z95.2 Presence of prosthetic heart valve
CPT/HCPCS: 36415; 71045; 80053; 81001; 83605; 83735; 83880; 84145; 84443; 84484; 85025; 87040; 87081; 87086; 87389; 87428; 87430; 87449; 87633; 87899; 93005; 93306; 96365; 96367; 96375; J0692; J1940; J3370; J3475; J7120; P9047

== ENCOUNTER 2024-01-27 18:31 | Emergency (ER) | payer SELFPAY ==
[2024-01-27 19:29] LABS: #Basophils 0.05 10x3/uL (0.0-0.2); %Basophils 1.3 % (0.0-1.0); %Eosinophils 5.3 % (0.0-10.0); %Lymphocytes 23.4 % (21.0-51.0); %Monocytes 15.4 % (0.0-10.0); %Neutrophils 54.3 % (42.0-75.0); Hematocrit 22.3 % (42.0-52.0); Hemoglobin 7.2 g/dL (14.0-18.0); Mean Corpuscular HGB CONC 32.3 g/dL (32.0-36.0); Mean Corpuscular Hemoglobin 31.3 pg (27.0-31.0); Mean Platelet Volume 11.6 fL (7.4-10.4); Platelet Count 101 10x3/uL (130-400); RBC Distribution Width 14.2 % (11.5-14.5)
[2024-01-27 19:49] LABS: INR-International Normal Ratio 4.1; Prothrombin Time 39.9 sec (12.0-14.7)
[2024-01-27 20:20] LABS: ALT (SGPT) 15 U/L (8-55); AST (SGOT) 47 U/L (5-34); Albumin 2.8 g/dL (3.5-5.0); Alkaline Phosphatase 150 U/L (40-110); Anion Gap 12 mmol/L (10-20); BUN (Urea Nitrogen) 24 mg/dL (8.9-20.6); Bilirubin, Total 2.4 mg/dL (0.2-1.2); Calc. Creatinine Clearance 0 mL/min (70-130); Calcium 8.2 mg/dL (7.8-10.44); Carbon Dioxide 24 mmol/L (22-29); Chloride 102 mmol/L (98-107); Estimated GFR 102; Globulin 3.8 g/dL (2.4-3.5); Glucose 101 mg/dL (70-105); Potassium 4.2 mmol/L (3.5-5.1); Protein, Total 6.6 g/dL (6.0-8.3); Sodium 134 mmol/L (136-145)
== END 2024-01-27 20:38 | disposition home or self-care (01) ==
LOC: ERS 18:31
DX: R04.0 Epistaxis (principal); Z87.891 Personal history of nicotine dependence
CPT/HCPCS: 36415; 80053; 85025; 85610; 85730; 86850; 86900; 86901; 99283

== ENCOUNTER 2024-02-11 08:05 | Inpatient (IN) | payer SELFPAY ==
[2024-02-11] MEDS ORDERED: Ketamine In 0.9 % NaCl 50 MG/5 ML SYRINGE ONE (08:09)
[2024-02-11] MEDS ORDERED: Rocuronium Bromide 10 MG/ML (10ML VIAL) ONE ×2 (08:18→08:32)
[2024-02-11 09:01] LABS: INR-International Normal Ratio 1.6; Prothrombin Time 18.7 sec (12.0-14.7)
[2024-02-11 09:02] LABS: #Basophils 0.03 10x3/uL (0.0-0.2); %Basophils 0.7 % (0.0-1.0); %Eosinophils 1.8 % (0.0-10.0); %Lymphocytes 14.8 % (21.0-51.0); %Monocytes 14.8 % (0.0-10.0); %Neutrophils 67.7 % (42.0-75.0); Hemoglobin 7.8 g/dL (14.0-18.0); Mean Corpuscular HGB CONC 31.2 g/dL (32.0-36.0); Mean Corpuscular Hemoglobin 29.9 pg (27.0-31.0); Mean Corpuscular Volume 95.8 fL (78.0-98.0); Mean Platelet Volume 12.7 fL (7.4-10.4); Platelet Count 80 10x3/uL (130-400); RBC Distribution Width 14.3 % (11.5-14.5); Red Blood Cell (RBC) Count 2.61 mill/uL (4.70-6.10)
[2024-02-11 09:02] LABS: PTT 40.4 sec (22.9-36.1)
[2024-02-11 09:03] LABS: Bacteria/HPF None Seen HPF (None Seen); Bilirubin Negative (Negative); Blood, Urine Negative (Negative); CAUTI Indications for Culture Alt mental st,lethar; Clarity Clear (Clear); Glucose, Urine (Dipstick) Normal (Negative); Ketone, Urine Negative (Negative); Leukocyte Negative Leu/uL (Negative); Nitrite Negative (Negative); Protein, Urine (Dipstick) Negative (Neg-Trace); RBC/HPF None Seen HPF (0-3); Specific Gravity, Urine 1.003 (1.002-1.036); Squamous Epithelial None Seen HPF (0-3); Urobilinogen Normal mg/dL (Less than 2); WBC/HPF 0-3 HPF (0-3); pH, Urine 6.5 (5.0-9.0)
[2024-02-11 09:04] LABS: ALT (SGPT) 17 U/L (8-55); AST (SGOT) 50 U/L (5-34); Alkaline Phosphatase 118 U/L (40-110); Anion Gap 17 mmol/L (10-20); BUN (Urea Nitrogen) 56 mg/dL (8.9-20.6); Bilirubin, Total 2.9 mg/dL (0.2-1.2); Calc. Creatinine Clearance 0 mL/min (70-130); Calcium 8.6 mg/dL (7.8-10.44); Carbon Dioxide 16 mmol/L (22-29); Chloride 106 mmol/L (98-107); Estimated GFR 52; Globulin 4.2 g/dL (2.4-3.5); Glucose 110 mg/dL (70-105); Protein, Total 7.2 g/dL (6.0-8.3); Sodium 134 mmol/L (136-145)
[2024-02-11 09:08] LABS: Urine Culture Reflex No No
[2024-02-11 09:17] LABS: Troponin I 0.513 ng/mL (< 0.028)
[2024-02-11] MEDS ORDERED: Sodium Bicarb 50 MEQ/50 ML Abboject 8.4% SYRINGE ONE (09:45)
[2024-02-11] MEDS ORDERED: Lactulose 20 GM (30 mL) UDCUP ONE (09:45)
[2024-02-11] MEDS ORDERED: Lactulose 20 GM (30 mL) UDCUP PER TUBE SCH (09:45)
[2024-02-11 09:53] LABS: Actual Bicarbonate (HCO3a) 25.1 mEq/L (22-28); Analyzer IN Cardio ER; Base Excess (BEa) 1.3 mEq/L (-2.0 to +3.0); CO2 Tension 36.2 mmHg (35.0-45.0); Calcium, Ionized (arterial) 1.09 mmol/L (1.12-1.30); Carboxyhemoglobin (COHb) 0.6 gm% (0.0-3.0); Hematocrit-ABG 27 % (42.0-52.0); Hemoglobin (Hb) 9.3 g/dL (14.0-18.0); O2 Tension (PaO2), arterial 85.8 mmHg (80.0-100.0); Potassium - ABG Lab 5.02 mmol/L (3.70-5.30); pH, Arterial 7.458 (7.35-7.45)
[2024-02-11] MEDS ORDERED: Propofol 1,000 MG/100 ML VIAL IV ONE (09:55)
[2024-02-11] MEDS ORDERED: Propofol 1,000 MG/100 ML VIAL IV PRN (10:00)
[2024-02-11] MEDS ORDERED: Ondansetron PF 4 MG/2 ML Vial IVP PRN (10:02)
[2024-02-11 10:04] LABS: Puncture Site LR
[2024-02-11] MEDS ORDERED: Lactulose 20 GM (30 mL) UDCUP PO SCH ×2 (10:15→13:00)
[2024-02-11] MEDS ORDERED: Aspirin 300 MG Suppository ONE ×2 (10:18→10:24)
[2024-02-11] MEDS ORDERED: Ventilator Sedation Protocol 1 EACH FS SCH (10:23)
[2024-02-11] MEDS ORDERED: DISCONTINUE PREVIOUS NARCOTIC PAIN MEDICATIONS AND BENZODIAZEPINES FS SCH (10:30)
[2024-02-11] MEDS ORDERED: Fentanyl BOLUS 250 ML IVPB PRN (10:30)
[2024-02-11] MEDS ORDERED: Fentanyl CADD 100 ML IV SCH (10:30)
[2024-02-11] MEDS ORDERED: Propofol BOLUS 1,000 MG/100 ML VIAL IV PRN (10:30)
[2024-02-11] MEDS ORDERED: hydrALAZINE 20 MG/ML VIAL SLOW IVP PRN (11:30)
[2024-02-11] MEDS: cefTRIAXone\\ROCEPHIN 2 GM in Sodium Chloride 0.9% 100 ML IVPB SCH (11:54)
[2024-02-11] MEDS: Lactulose 20 GM (30 mL) UDCUP PER TUBE SCH ×3 (11:55→17:12)
[2024-02-11] MEDS: Furosemide 40 MG (4 mL) VIAL SLOW IVP SCH (11:55)
[2024-02-11] MEDS: Albumin 25% 25 GM (100 mL) BOT IVPB SCH (11:56)
[2024-02-11 12:36] LABS: Troponin I 0.581 ng/mL (< 0.028)
[2024-02-11] MEDS: Pantoprazole 40 MG VIAL IVP SCH ×2 (14:22→21:33)
[2024-02-11] MEDS: Octreotide Acetate 1,250 MCG in Sodium Chloride 0.9% 250 ML 250 ML IVPB SCH (15:13)
[2024-02-11 16:00] LABS: Troponin I 0.581 ng/mL (< 0.028)
[2024-02-11] MEDS: Lorazepam 2 MG/ML VIAL SLOW IVP PRN (17:14)
[2024-02-11] MEDS: Propofol 1,000 MG/100 ML VIAL IV PRN (18:17)
[2024-02-11] MEDS: Rifaximin 200 MG TAB PO SCH (21:32)
[2024-02-12 03:41] LABS: #Basophils 0.03 10x3/uL (0.0-0.2); %Basophils 0.3 % (0.0-1.0); %Eosinophils 0.3 % (0.0-10.0); %Lymphocytes 9.5 % (21.0-51.0); %Monocytes 13.3 % (0.0-10.0); %Neutrophils 76.3 % (42.0-75.0); Hematocrit 23.9 % (42.0-52.0); Hemoglobin 7.6 g/dL (14.0-18.0); Mean Corpuscular HGB CONC 31.8 g/dL (32.0-36.0); Mean Corpuscular Hemoglobin 29.8 pg (27.0-31.0); Mean Corpuscular Volume 93.7 fL (78.0-98.0); Mean Platelet Volume 13.2 fL (7.4-10.4); Platelet Count 65 10x3/uL (130-400); RBC Distribution Width 14.3 % (11.5-14.5); Red Blood Cell (RBC) Count 2.55 mill/uL (4.70-6.10)
[2024-02-12 03:50] LABS: INR-International Normal Ratio 1.9; Prothrombin Time 21.4 sec (12.0-14.7)
[2024-02-12 03:56] LABS: ALT (SGPT) 16 U/L (8-55); AST (SGOT) 47 U/L (5-34); Albumin 3.5 g/dL (3.5-5.0); Alkaline Phosphatase 89 U/L (40-110); Anion Gap 17 mmol/L (10-20); BUN (Urea Nitrogen) 56 mg/dL (8.9-20.6); Bilirubin, Total 3.7 mg/dL (0.2-1.2); Calc. Creatinine Clearance 84 mL/min (70-130); Carbon Dioxide 18 mmol/L (22-29); Chloride 106 mmol/L (98-107); Estimated GFR 47; Globulin 3.8 g/dL (2.4-3.5); Glucose 125 mg/dL (70-105); Magnesium 2.4 mg/dL (1.6-2.6); Potassium 4.4 mmol/L (3.5-5.1); Protein, Total 7.3 g/dL (6.0-8.3); Sodium 137 mmol/L (136-145)
[2024-02-12] MEDS: Furosemide 40 MG (4 mL) VIAL SLOW IVP SCH (06:21)
[2024-02-12] MEDS ORDERED: Lidocaine 1% PF 5 ML VIAL ONE (08:24)
[2024-02-12] MEDS ORDERED: Sodium Bicarbonate 2.5 MEQ/5 ML SDV ONE (08:25)
[2024-02-12] MEDS: cefTRIAXone\\ROCEPHIN 2 GM in Sodium Chloride 0.9% 100 ML IVPB SCH (08:44)
[2024-02-12] MEDS ORDERED: cefTRIAXone\\ROCEPHIN 1 GM in Sodium Chloride 0.9% 100 ML IVPB SCH (09:00)
[2024-02-12] MEDS ORDERED: WARFARIN IVPB PRN (11:06)
[2024-02-12] MEDS: cefTRIAXone\\ROCEPHIN 1 GM in Sodium Chloride 0.9% 100 ML IVPB SCH (11:49)
[2024-02-12 13:24] LABS: RBC Count-Automated (BF) 872 /cu.mm; WBC/Nucleated-Auto (BF) 294 /cu.mm
[2024-02-12 14:28] LABS: BF Color Yellow; Body Fluid Source Ascites Body Fluid; Clarity Hazy (Clear); Tube # EDTA
[2024-02-12 14:38] LABS: Creatinine, Urine 9.86 mg/dL (63-166)
[2024-02-12 14:51] LABS: BF Segmented Neutrophils 13 %; Cell Count Non Hematic 80 %; Lymphocytes 7 %
[2024-02-12] MEDS: Acetaminophen 325 MG TAB PO PRN (14:52)
[2024-02-12] MEDS: Warfarin Sodium 1 MG TAB PO SCH ×2 (17:52→18:09)
[2024-02-13 04:34] LABS: #Basophils 0.03 10x3/uL (0.0-0.2); #Eosinophils Less than 0.03 10x3/uL (0.0-0.7); %Basophils 0.2 % (0.0-1.0); %Eosinophils 0.1 % (0.0-10.0); %Lymphocytes 7.9 % (21.0-51.0); %Monocytes 11.8 % (0.0-10.0); %Neutrophils 79.3 % (42.0-75.0); Hematocrit 25.6 % (42.0-52.0); Hemoglobin 8.3 g/dL (14.0-18.0); Mean Corpuscular HGB CONC 32.4 g/dL (32.0-36.0); Mean Corpuscular Hemoglobin 29.9 pg (27.0-31.0); Mean Corpuscular Volume 92.1 fL (78.0-98.0); Mean Platelet Volume 12.6 fL (7.4-10.4); Platelet Count 65 10x3/uL (130-400); RBC Distribution Width 14.3 % (11.5-14.5); Red Blood Cell (RBC) Count 2.78 mill/uL (4.70-6.10)
[2024-02-13 04:40] LABS: INR-International Normal Ratio 1.8; Prothrombin Time 20.8 sec (12.0-14.7)
[2024-02-13 04:46] LABS: CRP,High Sensitivity (Inhouse) 4.92 mg/dL (< or = 0.5)
[2024-02-13 04:47] LABS: ALT (SGPT) 15 U/L (8-55); AST (SGOT) 50 U/L (5-34); Albumin 3.6 g/dL (3.5-5.0); Alkaline Phosphatase 86 U/L (40-110); Anion Gap 15 mmol/L (10-20); BUN (Urea Nitrogen) 41 mg/dL (8.9-20.6); Bilirubin, Total 3.2 mg/dL (0.2-1.2); Calc. Creatinine Clearance 144 mL/min (70-130); Carbon Dioxide 19 mmol/L (22-29); Chloride 113 mmol/L (98-107); Estimated GFR 93; Globulin 3.8 g/dL (2.4-3.5); Glucose 113 mg/dL (70-105); Magnesium 2.4 mg/dL (1.6-2.6); Potassium 3.6 mmol/L (3.5-5.1); Protein, Total 7.4 g/dL (6.0-8.3); Sodium 143 mmol/L (136-145)
[2024-02-13 05:03] LABS: Troponin I 0.376 ng/mL (< 0.028)
[2024-02-13] MEDS: Dexmedetomidine In 0.9 % NaCl 100 ML IVPB SCH (12:56)
[2024-02-13] MEDS: cefTRIAXone\\ROCEPHIN 1 GM in Sodium Chloride 0.9% 100 ML IVPB SCH (12:57)
[2024-02-14 05:15] LABS: #Basophils Less than 0.03 10x3/uL (0.0-0.2); %Basophils 0.3 % (0.0-1.0); %Eosinophils 1.7 % (0.0-10.0); %Lymphocytes 11.8 % (21.0-51.0); %Monocytes 9.2 % (0.0-10.0); %Neutrophils 76.6 % (42.0-75.0); Hematocrit 22.7 % (42.0-52.0); Hemoglobin 7.1 g/dL (14.0-18.0); Mean Corpuscular HGB CONC 31.3 g/dL (32.0-36.0); Mean Corpuscular Volume 95.8 fL (78.0-98.0); Mean Platelet Volume 11.2 fL (7.4-10.4); Platelet Count 51 10x3/uL (130-400); RBC Distribution Width 14.1 % (11.5-14.5); Red Blood Cell (RBC) Count 2.37 mill/uL (4.70-6.10)
[2024-02-14 05:17] LABS: INR-International Normal Ratio 1.8; Prothrombin Time 21.1 sec (12.0-14.7)
[2024-02-14 05:23] LABS: ALT (SGPT) 11 U/L (8-55); AST (SGOT) 37 U/L (5-34); Albumin 2.9 g/dL (3.5-5.0); Alkaline Phosphatase 67 U/L (40-110); Anion Gap 12 mmol/L (10-20); BUN (Urea Nitrogen) 35 mg/dL (8.9-20.6); Bilirubin, Total 2.3 mg/dL (0.2-1.2); Calc. Creatinine Clearance 149 mL/min (70-130); Calcium 8.6 mg/dL (7.8-10.44); Carbon Dioxide 23 mmol/L (22-29); Chloride 116 mmol/L (98-107); Estimated GFR 98; Globulin 3.5 g/dL (2.4-3.5); Glucose 104 mg/dL (70-105); Protein, Total 6.4 g/dL (6.0-8.3); Sodium 148 mmol/L (136-145)
[2024-02-14] MEDS: Potassium Chloride 20 MEQ in Premix 1 BAG IVPB SCH (07:42)
[2024-02-14 08:48] LABS: Phosphorus 2.8 mg/dL (2.3-4.7)
[2024-02-14] MEDS: Potassium Phosphate 30 MMOL in Sodium Chloride 0.9% 500 ML IVPB SCH (10:43)
[2024-02-14 14:13] LABS: Hematocrit 24.1 % (42.0-52.0); Hemoglobin 7.3 g/dL (14.0-18.0); Platelet Count 58 10x3/uL (130-400)
[2024-02-14] MEDS: Morphine 2 MG/ML VIAL SLOW IVP PRN (18:26)
[2024-02-14] MEDS: Lactulose 20 GM (30 mL) UDCUP PER TUBE SCH (19:50)
[2024-02-15 04:25] LABS: Hematocrit 23.3 % (42.0-52.0); Hemoglobin 7.1 g/dL (14.0-18.0); Mean Corpuscular HGB CONC 30.5 g/dL (32.0-36.0); Mean Corpuscular Hemoglobin 29.6 pg (27.0-31.0); Mean Corpuscular Volume 97.1 fL (78.0-98.0); Mean Platelet Volume 12.3 fL (7.4-10.4); Platelet Count 58 10x3/uL (130-400); RBC Distribution Width 14.3 % (11.5-14.5)
[2024-02-15 04:36] LABS: INR-International Normal Ratio 1.7; Prothrombin Time 19.9 sec (12.0-14.7)
[2024-02-15 04:50] LABS: ALT (SGPT) 12 U/L (8-55); AST (SGOT) 36 U/L (5-34); Alkaline Phosphatase 64 U/L (40-110); Anion Gap 11 mmol/L (10-20); BUN (Urea Nitrogen) 24 mg/dL (8.9-20.6); Bilirubin, Total 2.1 mg/dL (0.2-1.2); Calc. Creatinine Clearance 176 mL/min (70-130); Calcium 8.6 mg/dL (7.8-10.44); Carbon Dioxide 23 mmol/L (22-29); Chloride 120 mmol/L (98-107); Estimated GFR 118; Globulin 3.7 g/dL (2.4-3.5); Glucose 82 mg/dL (70-105); Potassium 3.1 mmol/L (3.5-5.1); Protein, Total 6.7 g/dL (6.0-8.3); Sodium 151 mmol/L (136-145)
[2024-02-15 05:18] LABS: Anisocytosis SLIGHT = 6-15 cells HPF (0-5); Band 3 % (5-11); Eosinophils 5 % (0-10); Hypochromia SLIGHT = 6-15 cells HPF (0-5); Lymphocytes 4 % (21-51); Macrocytosis SLIGHT = 6-15 cells HPF (0-5); Metamyelocyte 2 % (0-0); Neutrophil 85 % (42-75); Platelet Adequacy Comment Platelets Decreased; Polychromasia SLIGHT = 2-3 cells HPF (0-2); Toxic Granulation SLIGHT
[2024-02-15] MEDS ORDERED: Electrolyte Replacement Protocol 1 EACH FS PRN (05:48)
[2024-02-15] MEDS ORDERED: Potassium Chloride 20 MEQ in Premix 1 BAG IVPB SCH (06:00)
[2024-02-15] MEDS: Potassium Chloride 20 MEQ TAB PO SCH ×2 (06:30→12:42)
[2024-02-15] MEDS: Dextrose 5 %-0.45 % NaCl 1,000 ML IV SCH (08:33)
[2024-02-15] MEDS ORDERED: WARFARIN IVPB PRN (13:48)
[2024-02-15] MEDS: Warfarin Sodium 2 MG TAB PO SCH (17:01)
[2024-02-15] MEDS: Carvedilol 3.125 MG TAB PO SCH (17:01)
[2024-02-15] MEDS: Lactulose 20 GM (30 mL) UDCUP PER TUBE SCH (17:01)
[2024-02-15 18:33] LABS: Anion Gap 12 mmol/L (10-20); BUN (Urea Nitrogen) 18 mg/dL (8.9-20.6); Calc. Creatinine Clearance 194 mL/min (70-130); Calcium 8.6 mg/dL (7.8-10.44); Carbon Dioxide 20 mmol/L (22-29); Chloride 119 mmol/L (98-107); Estimated GFR 122; Glucose 97 mg/dL (70-105); Magnesium 2.2 mg/dL (1.6-2.6); Potassium 3.4 mmol/L (3.5-5.1); Sodium 148 mmol/L (136-145)
[2024-02-16 04:26] LABS: INR-International Normal Ratio 1.8; Prothrombin Time 21.1 sec (12.0-14.7)
[2024-02-16] MEDS: Furosemide 40 MG (4 mL) VIAL SLOW IVP SCH (08:46)
[2024-02-16 09:19] LABS: Anion Gap 10 mmol/L (10-20); BUN (Urea Nitrogen) 12 mg/dL (8.9-20.6); Calc. Creatinine Clearance 185 mL/min (70-130); Calcium 8.2 mg/dL (7.8-10.44); Carbon Dioxide 22 mmol/L (22-29); Chloride 115 mmol/L (98-107); Estimated GFR 123; Glucose 125 mg/dL (70-105); Potassium 3.2 mmol/L (3.5-5.1); Sodium 144 mmol/L (136-145)
[2024-02-16 09:25] LABS: Hematocrit 24.9 % (42.0-52.0); Hemoglobin 7.7 g/dL (14.0-18.0); Platelet Count 79 10x3/uL (130-400)
[2024-02-16] MEDS: Potassium Chloride 20 MEQ TAB PO SCH ×2 (09:56→16:26)
[2024-02-16] MEDS: Warfarin Sodium 1 MG TAB PO SCH (16:26)
[2024-02-16 17:52] VITALS: BMI 28.0
[2024-02-17 04:28] LABS: #Basophils Less than 0.03 10x3/uL (0.0-0.2); %Basophils 0.4 % (0.0-1.0); %Eosinophils 7.3 % (0.0-10.0); %Lymphocytes 26.5 % (21.0-51.0); %Monocytes 12.1 % (0.0-10.0); %Neutrophils 53.1 % (42.0-75.0); Hematocrit 21.8 % (42.0-52.0); Hemoglobin 6.9 g/dL (14.0-18.0); Mean Corpuscular HGB CONC 31.7 g/dL (32.0-36.0); Mean Corpuscular Hemoglobin 29.9 pg (27.0-31.0); Mean Corpuscular Volume 94.4 fL (78.0-98.0); Mean Platelet Volume 11.8 fL (7.4-10.4); Platelet Count 70 10x3/uL (130-400); RBC Distribution Width 14.6 % (11.5-14.5); Red Blood Cell (RBC) Count 2.31 mill/uL (4.70-6.10)
[2024-02-17 04:31] LABS: INR-International Normal Ratio 1.9; Prothrombin Time 21.4 sec (12.0-14.7)
[2024-02-17 04:40] LABS: ALT (SGPT) 13 U/L (8-55); AST (SGOT) 39 U/L (5-34); Albumin 2.7 g/dL (3.5-5.0); Alkaline Phosphatase 88 U/L (40-110); Anion Gap 12 mmol/L (10-20); BUN (Urea Nitrogen) 12 mg/dL (8.9-20.6); Bilirubin, Total 1.8 mg/dL (0.2-1.2); Calc. Creatinine Clearance 192 mL/min (70-130); Calcium 7.7 mg/dL (7.8-10.44); Carbon Dioxide 20 mmol/L (22-29); Chloride 111 mmol/L (98-107); Estimated GFR 123; Globulin 3.5 g/dL (2.4-3.5); Glucose 94 mg/dL (70-105); Potassium 3.9 mmol/L (3.5-5.1); Protein, Total 6.2 g/dL (6.0-8.3); Sodium 139 mmol/L (136-145)
[2024-02-17] MEDS: Magnesium 2 GM/50 ML(in water) 2 GM in Premix 1 BAG IVPB SCH (09:41)
[2024-02-17] MEDS: Furosemide 40 MG (4 mL) VIAL SLOW IVP SCH (15:05)
[2024-02-17] MEDS: Pantoprazole DR 40 MG TAB PO SCH (20:17)
[2024-02-18 04:24] LABS: INR-International Normal Ratio 1.6; Prothrombin Time 19.2 sec (12.0-14.7)
[2024-02-18 04:28] LABS: #Basophils 0.03 10x3/uL (0.0-0.2); %Basophils 0.6 % (0.0-1.0); %Eosinophils 6.9 % (0.0-10.0); %Lymphocytes 21.8 % (21.0-51.0); %Monocytes 11.1 % (0.0-10.0); Hematocrit 26.8 % (42.0-52.0); Hemoglobin 8.5 g/dL (14.0-18.0); Mean Corpuscular HGB CONC 31.7 g/dL (32.0-36.0); Mean Corpuscular Hemoglobin 28.6 pg (27.0-31.0); Mean Corpuscular Volume 90.2 fL (78.0-98.0); Mean Platelet Volume 11.3 fL (7.4-10.4); Platelet Count 70 10x3/uL (130-400); RBC Distribution Width 18.1 % (11.5-14.5); Red Blood Cell (RBC) Count 2.97 mill/uL (4.70-6.10)
[2024-02-18 04:30] LABS: ALT (SGPT) 15 U/L (8-55); AST (SGOT) 43 U/L (5-34); Alkaline Phosphatase 98 U/L (40-110); Anion Gap 10 mmol/L (10-20); BUN (Urea Nitrogen) 13 mg/dL (8.9-20.6); Bilirubin, Total 2.7 mg/dL (0.2-1.2); Calc. Creatinine Clearance 192 mL/min (70-130); Carbon Dioxide 21 mmol/L (22-29); Chloride 110 mmol/L (98-107); Estimated GFR 123; Globulin 3.8 g/dL (2.4-3.5); Glucose 83 mg/dL (70-105); Magnesium 2.1 mg/dL (1.6-2.6); Potassium 4.5 mmol/L (3.5-5.1); Protein, Total 6.8 g/dL (6.0-8.3); Sodium 136 mmol/L (136-145)
[2024-02-18] MEDS: Spironolactone 25 MG TAB PO SCH (10:18)
[2024-02-19 04:55] LABS: INR-International Normal Ratio 1.7; Prothrombin Time 19.7 sec (12.0-14.7)
[2024-02-19 05:02] LABS: #Basophils Less than 0.03 10x3/uL (0.0-0.2); %Basophils 0.4 % (0.0-1.0); %Eosinophils 6.5 % (0.0-10.0); %Lymphocytes 20.9 % (21.0-51.0); %Monocytes 12.5 % (0.0-10.0); %Neutrophils 59.1 % (42.0-75.0); Hematocrit 26.3 % (42.0-52.0); Hemoglobin 8.4 g/dL (14.0-18.0); Mean Corpuscular HGB CONC 31.9 g/dL (32.0-36.0); Mean Corpuscular Volume 90.7 fL (78.0-98.0); Mean Platelet Volume 12.2 fL (7.4-10.4); Platelet Count 70 10x3/uL (130-400)
[2024-02-19 05:08] LABS: ALT (SGPT) 16 U/L (8-55); AST (SGOT) 47 U/L (5-34); Alkaline Phosphatase 112 U/L (40-110); Anion Gap 10 mmol/L (10-20); BUN (Urea Nitrogen) 13 mg/dL (8.9-20.6); Bilirubin, Total 2.6 mg/dL (0.2-1.2); Calc. Creatinine Clearance 178 mL/min (70-130); Calcium 8.2 mg/dL (7.8-10.44); Carbon Dioxide 20 mmol/L (22-29); Chloride 110 mmol/L (98-107); Estimated GFR 120; Globulin 4.1 g/dL (2.4-3.5); Glucose 90 mg/dL (70-105); Potassium 4.4 mmol/L (3.5-5.1); Protein, Total 7.1 g/dL (6.0-8.3); Sodium 136 mmol/L (136-145)
[2024-02-19] MEDS: Spironolactone 100 MG TAB PO SCH (08:48)
[2024-02-19] MEDS: Magnesium 2 GM/50 ML(in water) 2 GM in Premix 1 BAG IVPB SCH (08:49)
[2024-02-19 16:26] VITALS: BP 125/64; TEMP 98.1
[2024-02-19 16:28] VITALS: BMI 29.5
== END 2024-02-19 17:15 | disposition home or self-care (01) | DRG 441 ==
LOC: ERS 08:05 → SUATTDRO 08:05 → CCU 10:35 → T4-A 02-15 09:30 → 2NO 02-15 15:42
PROVIDERS: ADMIT Internal Medicine; ATTEND Internal Medicine
PROC: 30233J1 Transfusion of Nonautologous Serum Albumin into Peripheral Vein, Percutaneous Approach (ICD-10-PCS; 2024-02-11)
PROC: 5A1945Z Respiratory Ventilation, 24-96 Consecutive Hours (ICD-10-PCS; 2024-02-11)
PROC: 0W9G3ZZ Drainage of Peritoneal Cavity, Percutaneous Approach (ICD-10-PCS; 2024-02-12)
PROC: 30233N1 Transfusion of Nonautologous Red Blood Cells into Peripheral Vein, Percutaneous Approach (ICD-10-PCS; principal; 2024-02-17)
DX: K76.82 Hepatic encephalopathy (principal); I21.4 Non-ST elevation (NSTEMI) myocardial infarction; J96.01 Acute respiratory failure with hypoxia; D61.818 Other pancytopenia; N17.9 Acute kidney failure, unspecified; I50.32 Chronic diastolic (congestive) heart failure; K70.31 Alcoholic cirrhosis of liver with ascites; I11.0 Hypertensive heart disease with heart failure; E66.9 Obesity, unspecified; D64.9 Anemia, unspecified; Z68.29 Body mass index [BMI] 29.0-29.9, adult; Z95.2 Presence of prosthetic heart valve
CPT/HCPCS: 31500; 36415; 36430; 49083; 51702; 70450; 71045; 74018; 76705; 80048; 80053; 81001; 82042; 82140; 82570; 82805; 83605; 83735; 83880; 84100; 84145; 84157; 84484; 84540; 85014; 85018; 85025; 85049; 85060; 85610; 85730; 86141; 86850; 86900; 86901; 87040; 87070; 87086; 87205; 89051; 93005; 93306; 93798; 94002; 94003; 94760; 96365; 96375; 97139; 99292; J0696; J1940; J2060; J2272; J2354; J2470; J2704; J3475; J3480; J3490; J7030; J7042; J7050; P9016; P9047

== ENCOUNTER 2024-02-29 17:07 | Inpatient (IN) | payer MEDICAID, SELFPAY ==
[2024-02-29] MEDS ORDERED: Sodium Chloride 0.9% 100 ML ONE (17:30)
[2024-02-29] MEDS ORDERED: Cefepime 2 GM VIAL ONE (17:30)
[2024-02-29] MEDS ORDERED: Ibuprofen 200 MG TAB ONE (17:34)
[2024-02-29 18:00] LABS: #Basophils Less than 0.03 10x3/uL (0.0-0.2); #Eosinophils Less than 0.03 10x3/uL (0.0-0.7); %Basophils 0.5 % (0.0-1.0); %Eosinophils 0.2 % (0.0-10.0); %Lymphocytes 7.1 % (21.0-51.0); %Monocytes 7.1 % (0.0-10.0); %Neutrophils 84.6 % (42.0-75.0); Hematocrit 28.4 % (42.0-52.0); Hemoglobin 9.5 g/dL (14.0-18.0); Mean Corpuscular HGB CONC 33.5 g/dL (32.0-36.0); Mean Corpuscular Hemoglobin 29.4 pg (27.0-31.0); Mean Corpuscular Volume 87.9 fL (78.0-98.0); Platelet Count 73 10x3/uL (130-400); Red Blood Cell (RBC) Count 3.23 mill/uL (4.70-6.10)
[2024-02-29 18:02] LABS: ALT (SGPT) 23 U/L (8-55); AST (SGOT) 54 U/L (5-34); Albumin 3.3 g/dL (3.5-5.0); Alkaline Phosphatase 116 U/L (40-110); Anion Gap 11 mmol/L (10-20); BUN (Urea Nitrogen) 14 mg/dL (8.9-20.6); Bilirubin, Total 3.8 mg/dL (0.2-1.2); Calc. Creatinine Clearance 0 mL/min (70-130); Calcium 8.8 mg/dL (7.8-10.44); Carbon Dioxide 16 mmol/L (22-29); Chloride 108 mmol/L (98-107); Estimated GFR 122; Globulin 4.5 g/dL (2.4-3.5); Glucose 118 mg/dL (70-105); Lipase 66 U/L (8-78); Protein, Total 7.8 g/dL (6.0-8.3); Sodium 131 mmol/L (136-145)
[2024-02-29 18:12] LABS: INR-International Normal Ratio 1.4; Prothrombin Time 17.4 sec (12.0-14.7)
[2024-02-29 18:13] LABS: PTT 40.7 sec (22.9-36.1)
[2024-02-29 22:57] LABS: Troponin I 0.023 ng/mL (< 0.028)
[2024-03-01] MEDS ORDERED: Ondansetron ODT 4 MG TAB PO PRN (00:09)
[2024-03-01] MEDS ORDERED: Acetaminophen 650 MG Suppository PR PRN (00:09)
[2024-03-01] MEDS ORDERED: Ondansetron PF 4 MG/2 ML Vial IVP PRN (00:09)
[2024-03-01] MEDS: Vancomycin (BATCH) 2.5 GM in Premix 1 BAG IVPB ONE (00:35)
[2024-03-01] MEDS: Acetaminophen 325 MG TAB PO SCH ×2 (00:40→05:28)
[2024-03-01 01:28] VITALS: BMI 28.6
[2024-03-01] MEDS: Enoxaparin 100 MG (1 mL) SYRINGE SC SCH ×3 (02:47→20:40)
[2024-03-01] MEDS: VANCOMYCIN 1.25 GM/250 ML BAG 1.25 GM in Premix 1 BAG IVPB SCH ×2 (02:47→14:05)
[2024-03-01 05:04] LABS: #Basophils Less than 0.03 10x3/uL (0.0-0.2); %Basophils 0.7 % (0.0-1.0); %Eosinophils 1.7 % (0.0-10.0); %Lymphocytes 18.3 % (21.0-51.0); %Monocytes 17.6 % (0.0-10.0); %Neutrophils 61.4 % (42.0-75.0); Hematocrit 24.1 % (42.0-52.0); Hemoglobin 7.7 g/dL (14.0-18.0); Mean Corpuscular Hemoglobin 29.4 pg (27.0-31.0); Mean Platelet Volume 12.1 fL (7.4-10.4); Platelet Count 68 10x3/uL (130-400); Red Blood Cell (RBC) Count 2.62 mill/uL (4.70-6.10)
[2024-03-01 05:12] LABS: ALT (SGPT) 17 U/L (8-55); AST (SGOT) 46 U/L (5-34); Albumin 2.6 g/dL (3.5-5.0); Alkaline Phosphatase 89 U/L (40-110); Anion Gap 10 mmol/L (10-20); BUN (Urea Nitrogen) 16 mg/dL (8.9-20.6); Bilirubin, Total 2.9 mg/dL (0.2-1.2); Calc. Creatinine Clearance 176 mL/min (70-130); Calcium 8.1 mg/dL (7.8-10.44); Carbon Dioxide 16 mmol/L (22-29); Chloride 112 mmol/L (98-107); Estimated GFR 122; Globulin 3.5 g/dL (2.4-3.5); Glucose 92 mg/dL (70-105); Potassium 3.6 mmol/L (3.5-5.1); Protein, Total 6.1 g/dL (6.0-8.3); Sodium 134 mmol/L (136-145)
[2024-03-01 05:14] LABS: Vancomycin, Random 57.8 ug/mL (See Comment)
[2024-03-01] MEDS: Piperacillin/Tazobactam 3.375 GM in Sodium Chloride 0.9% 100 ML IVPB SCH ×2 (05:25→10:12)
[2024-03-01] MEDS ORDERED: Piperacillin/Tazobactam 4.5 GM in Sodium Chloride 0.9% 100 ML IVPB SCH (06:00)
[2024-03-01] MEDS ORDERED: Vancomycin 1.5 GRAM/300 ML BAG IVPB SCH (09:00)
[2024-03-01] MEDS: Carvedilol 3.125 MG TAB PO SCH (10:08)
[2024-03-01] MEDS: Pantoprazole DR 40 MG TAB PO SCH (10:09)
[2024-03-01] MEDS: Famotidine 20 MG TAB PO SCH (10:09)
[2024-03-01] MEDS: Lactulose 20 GM (30 mL) UDCUP PER TUBE SCH (10:09)
[2024-03-01] MEDS: Rifaximin 200 MG TAB PO SCH (10:09)
[2024-03-01] MEDS: Famotidine/PF 20 mg/2ml Vial SLOW IVP SCH (10:12)
[2024-03-01 12:21] LABS: Magnesium 1.5 mg/dL (1.6-2.6)
[2024-03-01] MEDS ORDERED: VANCOMYCIN 1.25 GM/250 ML BAG 1.25 GM in Premix 1 BAG IVPB SCH (14:00)
[2024-03-01] MEDS: DOBUTamine 500 mg/250 ml 250 ML IVPB SCH (14:06)
[2024-03-01] MEDS: Magnesium 2 GM/50 ML(in water) 2 GM in Premix 1 BAG IVPB SCH (16:15)
[2024-03-01] MEDS: Cefepime 2 GM in Sodium Chloride 0.9% 100 ML IVPB SCH (20:39)
[2024-03-02] MEDS ORDERED: Acetaminophen 325 MG TAB ONE (05:11)
[2024-03-02] MEDS ORDERED: Pantoprazole DR 40 MG TAB ONE (11:11)
[2024-03-02] MEDS ORDERED: Lidocaine 1% w/Epinephrine 1:100K 20 ML VIAL ONE (12:46)
[2024-03-02] MEDS ORDERED: cefTRIAXone (ROCEPHIN) 2 GM VIAL ONE (17:39)
[2024-03-02] MEDS ORDERED: Sodium Chloride 0.9% 100 ML ONE (17:40)
[2024-03-03] MEDS ORDERED: Magnesium Oxide 400 MG TAB ONE (08:50)
[2024-03-03] MEDS ORDERED: PARoxetine 20 MG TAB ONE (08:51)
[2024-03-03] MEDS ORDERED: Spironolactone 25 MG TAB ONE (08:51)
[2024-03-03] MEDS ORDERED: Warfarin Sodium 1 MG TAB ONE (16:40)
[2024-03-03 16:53] VITALS: BP 121/71; TEMP 98.5
[2024-03-04] MEDS ORDERED: FLU (Fluarix Triv) TS24-25(6MOS UP)/PF 45 MCG/0.5 ML Syringe IM ONE (09:00)
[2024-03-08 12:38] LABS: EliA RAS New Method **** NEW METHOD ****; Rheumatoid Factor IgM Antibody 3.8 IU/mL (<3.5 Negative)
[2024-03-08 19:42] LABS: Vancomycin, Random 31.4 ug/mL (See Comment)
[2024-03-08 19:43] LABS: BF Color Yellow; Body Fluid Source Ascites Body Fluid; Clarity Hazy (Clear); RBC Count-Automated (BF) 1845 /cu.mm; Tube # EDTA; WBC/Nucleated-Auto (BF) 57 /cu.mm
[2024-03-08 19:44] LABS: Lymphocytes 13 %
[2024-03-08 19:45] LABS: Cell Count Non Hematic 87 %
[2024-03-08 19:47] LABS: AST (SGOT) 46 U/L (5-34); Albumin 2.7 g/dL (3.5-5.0); Alkaline Phosphatase 97 U/L (40-110); Anion Gap 11 mmol/L (10-20); BUN (Urea Nitrogen) 12 mg/dL (8.9-20.6); Bilirubin, Total 2.3 mg/dL (0.2-1.2); Calc. Creatinine Clearance 183 mL/min (70-130); Calcium 7.9 mg/dL (7.6-10.4); Carbon Dioxide 16 mmol/L (22-29); Chloride 115 mmol/L (98-107); Estimated GFR 124; Globulin 3.5 g/dL (2.4-3.5); Glucose 93 mg/dL (70-105); Potassium 3.8 mmol/L (3.5-5.1); Protein, Total 6.2 g/dL (6.0-8.3); Sodium 138 mmol/L (136-145)
[2024-03-08 19:48] LABS: ALT (SGPT) 17 U/L (8-55)
[2024-03-08 19:49] LABS: Hematocrit 28.6 % (42.0-52.0); Hemoglobin 8.4 g/dL (14.0-18.0); Mean Corpuscular Hemoglobin 29.8 pg (27.0-31.0); Mean Corpuscular Volume 101.4 fL (78.0-98.0); Red Blood Cell (RBC) Count 2.82 mill/uL (4.70-6.10)
[2024-03-08 19:50] LABS: Band 9 % (5-11); Eosinophils 1 % (0-10); Lymphocytes 40 % (21-51); Mean Corpuscular HGB CONC 29.4 g/dL (32.0-36.0); Monocytes 7 % (0-10); Neutrophil 44 % (42-75); Nucleated RBC (Manual Ct) 6 % (0); Platelet Count 29 10x3/uL (130-400); RBC Distribution Width 19.6 % (11.5-14.5)
[2024-03-08 19:51] LABS: Anisocytosis SLIGHT = 6-15 cells (100X) (0-5/hpf); Hypochromia SLIGHT = 6-15 cells (100X) (0-5/hpf); Macrocytosis SLIGHT = 6-15 cells (100X) (0-5/hpf); Poikilocytosis SLIGHT = 6-15 cells (100X) (0-5/hpf); Polychromasia SLIGHT = 2-3 cells (100X) (0-2/hpf)
[2024-03-08 19:52] LABS: Large Platelets 4.6 (None Seen); Platelet Adequacy Comment Platelets Decreased
[2024-03-08 20:04] LABS: Heparin-Induced Ab (HITA) 0.128
[2024-03-08 20:11] LABS: EPI 246 sec (67-192)
[2024-03-08 20:13] LABS: Platelet Count 67 thou/uL (130-400)
[2024-03-08 20:14] LABS: ADP 284 sec (39-127); ADP Status Message No Message
[2024-03-08 20:20] LABS: Hematocrit 26.4 % (42.0-52.0); Hemoglobin 8.7 g/dL (14.0-18.0)
[2024-03-08 20:21] LABS: Mean Platelet Volume 11.4 fL (7.4-10.4); Platelet Count 73 10x3/uL (130-400); RBC Distribution Width 19.3 % (11.5-14.5)
[2024-03-08 20:22] LABS: Anisocytosis MODERATE=16-30 cells (100X) (0-5/hpf); Band 7 % (5-11); Eosinophils 1 % (0-10); Hypochromia SLIGHT = 6-15 cells (100X) (0-5/hpf); Lymphocytes 16 % (21-51); Macrocytosis SLIGHT = 6-15 cells (100X) (0-5/hpf); Neutrophil 58 % (42-75); Poikilocytosis SLIGHT = 6-15 cells (100X) (0-5/hpf); Polychromasia SLIGHT = 2-3 cells (100X) (0-2/hpf); Schistocytes SLIGHT = 2-5 cells (100X) (0-1/hpf); Target Cells SLIGHT = 2-5 cells (100X) (0-1/hpf)
[2024-03-08 20:23] LABS: Burr Cells MODERATE= 6-15 cells (100X) (0-1/hpf); Large Platelets 12.6 (None Seen); Ovalocytes SLIGHT = 2-5 cells (100X) (0-1/hpf)
[2024-03-08 20:24] LABS: Platelet Adequacy Comment Platelets Decreased
== END 2024-03-03 21:00 | disposition short-term general hospital (02) | DRG 871 ==
LOC: ERS 17:07 → IMCU/EMU 21:40 → PCU 03-01 17:42
PROVIDERS: ADMIT Student in an Organized Health Care Education/Training Program; ATTEND Student in an Organized Health Care Education/Training Program
PROC: 3E03329 Introduction of Other Anti-infective into Peripheral Vein, Percutaneous Approach (ICD-10-PCS; principal; 2024-02-29)
PROC: 0W9G3ZZ Drainage of Peritoneal Cavity, Percutaneous Approach (ICD-10-PCS; 2024-03-02)
DX: A41.9 Sepsis, unspecified organism (principal); I50.33 Acute on chronic diastolic (congestive) heart failure; K65.2 Spontaneous bacterial peritonitis; E87.1 Hypo-osmolality and hyponatremia; E87.20 Acidosis, unspecified; F41.9 Anxiety disorder, unspecified; K70.31 Alcoholic cirrhosis of liver with ascites; D69.6 Thrombocytopenia, unspecified; K52.9 Noninfective gastroenteritis and colitis, unspecified; Z95.2 Presence of prosthetic heart valve; Z95.1 Presence of aortocoronary bypass graft; Z87.891 Personal history of nicotine dependence; Z79.01 Long term (current) use of anticoagulants
CPT/HCPCS: 36415; 49083; 71045; 74177; 80053; 80202; 82140; 83520; 83605; 83690; 83735; 83880; 84145; 84484; 85025; 85060; 85576; 85610; 85730; 86141; 87040; 87086; 87428; 89051; 93005; 93306; 93798; 94760; 96365; 96375; J0692; J0696; J1250; J1650; J2543; J3370; J3475; J3490

== ENCOUNTER 2024-03-13 19:52 | Inpatient (IN) | payer MEDICAID, SELFPAY ==
[2024-03-13 20:37] LABS: #Basophils 0.03 10x3/uL (0.0-0.2); %Basophils 0.7 % (0.0-1.0); %Eosinophils 1.7 % (0.0-10.0); %Lymphocytes 18.8 % (21.0-51.0); %Monocytes 16.4 % (0.0-10.0); %Neutrophils 62.2 % (42.0-75.0); Hematocrit 32.3 % (42.0-52.0); Hemoglobin 10.7 g/dL (14.0-18.0); Mean Corpuscular HGB CONC 33.1 g/dL (32.0-36.0); Mean Corpuscular Hemoglobin 29.6 pg (27.0-31.0); Mean Corpuscular Volume 89.5 fL (78.0-98.0); Mean Platelet Volume 11.9 fL (7.4-10.4); Platelet Count 94 10x3/uL (130-400); RBC Distribution Width 18.6 % (11.5-14.5); Red Blood Cell (RBC) Count 3.61 mill/uL (4.70-6.10)
[2024-03-13 20:50] LABS: ALT (SGPT) 46 U/L (8-55); AST (SGOT) 87 U/L (5-34); Albumin 3.6 g/dL (3.5-5.0); Alkaline Phosphatase 157 U/L (40-110); Anion Gap 16 mmol/L (10-20); BUN (Urea Nitrogen) 31 mg/dL (8.9-20.6); Bilirubin, Total 3.1 mg/dL (0.2-1.2); CK (CPK) 166 U/L (30-200); Calc. Creatinine Clearance 0 mL/min (70-130); Calcium 9.3 mg/dL (7.8-10.44); Carbon Dioxide 24 mmol/L (22-29); Chloride 102 mmol/L (98-107); Estimated GFR 86; Globulin 4.9 g/dL (2.4-3.5); Glucose 103 mg/dL (70-105); Lipase 91 U/L (8-78); Potassium 4.2 mmol/L (3.5-5.1); Protein, Total 8.5 g/dL (6.0-8.3); Sodium 138 mmol/L (136-145)
[2024-03-13 20:51] LABS: Acetaminophen Less than 10 mcg/mL (Less than 10); Alcohol Less than 10.0 mg/dL (Less than 10); Salicylate Less than 8.0 mg/dL (Less than 8.0)
[2024-03-13] MEDS ORDERED: LORazepam 2 MG/ML SYR.(CARPUJECT) ONE (20:57)
[2024-03-13 21:56] LABS: Troponin I 0.019 ng/mL (< 0.028)
[2024-03-13] MEDS ORDERED: Lactulose 20 GM (30 mL) UDCUP ONE ×3 (23:06→23:28)
[2024-03-14] MEDS ORDERED: Ondansetron PF 4 MG/2 ML Vial IVP PRN (00:05)
[2024-03-14] MEDS ORDERED: Acetaminophen 650 MG Suppository PR PRN ×2 (00:05→10:50)
[2024-03-14] MEDS ORDERED: Ondansetron ODT 4 MG TAB PO PRN (00:05)
[2024-03-14] MEDS: Acetaminophen 325 MG TAB PO SCH ×2 (01:17→05:46)
[2024-03-14 01:36] VITALS: BMI 25.2
[2024-03-14] MEDS: Lorazepam 2 MG/ML VIAL SLOW IVP SCH ×3 (01:43→05:20)
[2024-03-14] MEDS ORDERED: Lorazepam 1 MG TAB PO PRN (03:53)
[2024-03-14] MEDS ORDERED: Electrolyte Replacement Protocol 1 EACH FS SCH (04:00)
[2024-03-14] MEDS: Lorazepam 2 MG/ML VIAL ONE (04:03)
[2024-03-14] MEDS: Thiamine HCl 200 MG/2 ML VIAL SLOW IVP SCH (04:28)
[2024-03-14] MEDS: Metoprolol Tartrate 5 MG (5 mL) VIAL IVP SCH (04:28)
[2024-03-14 06:19] LABS: #Basophils 0.03 10x3/uL (0.0-0.2); %Basophils 0.5 % (0.0-1.0); %Eosinophils 1.4 % (0.0-10.0); %Lymphocytes 16.5 % (21.0-51.0); %Neutrophils 64.4 % (42.0-75.0); Hematocrit 30.7 % (42.0-52.0); Hemoglobin 10.5 g/dL (14.0-18.0); Mean Corpuscular HGB CONC 34.2 g/dL (32.0-36.0); Mean Corpuscular Hemoglobin 30.1 pg (27.0-31.0); Mean Platelet Volume 11.9 fL (7.4-10.4); Platelet Count 93 10x3/uL (130-400); RBC Distribution Width 18.4 % (11.5-14.5); Red Blood Cell (RBC) Count 3.49 mill/uL (4.70-6.10)
[2024-03-14 06:23] LABS: ALT (SGPT) 41 U/L (8-55); AST (SGOT) 80 U/L (5-34); Albumin 3.4 g/dL (3.5-5.0); Alkaline Phosphatase 147 U/L (40-110); Anion Gap 16 mmol/L (10-20); BUN (Urea Nitrogen) 26 mg/dL (8.9-20.6); Bilirubin, Total 3.6 mg/dL (0.2-1.2); Calc. Creatinine Clearance 125 mL/min (70-130); Calcium 9.3 mg/dL (7.8-10.44); Carbon Dioxide 21 mmol/L (22-29); Chloride 105 mmol/L (98-107); Estimated GFR 107; Globulin 4.7 g/dL (2.4-3.5); Glucose 110 mg/dL (70-105); Potassium 3.8 mmol/L (3.5-5.1); Protein, Total 8.1 g/dL (6.0-8.3); Sodium 138 mmol/L (136-145)
[2024-03-14] MEDS: Lorazepam 2 MG/ML VIAL IM PRN (07:10)
[2024-03-14] MEDS ORDERED: Lactulose 20 GM (30 mL) UDCUP PO SCH (09:00)
[2024-03-14] MEDS ORDERED: Pantoprazole DR 40 MG TAB PO SCH (09:00)
[2024-03-14] MEDS ORDERED: Lactulose 20 GM (30 mL) UDCUP PR SCH (09:00)
[2024-03-14 09:01] LABS: Phosphorus 3.6 mg/dL (2.3-4.7)
[2024-03-14 09:04] LABS: Bilirubin, Direct 1.7 mg/dL (0.1-0.3); Magnesium 1.9 mg/dL (1.6-2.6)
[2024-03-14] MEDS: Folic Acid 1 MG TAB PO SCH (09:21)
[2024-03-14] MEDS: Carvedilol 3.125 MG TAB PO SCH (09:21)
[2024-03-14] MEDS: Rifaximin 550 MG TAB PO SCH (09:21)
[2024-03-14] MEDS: Multivit, Therapeutic 1 TAB PO SCH (09:21)
[2024-03-14] MEDS: Pantoprazole 40 MG VIAL IVP SCH (09:39)
[2024-03-14] MEDS: Lorazepam 2 MG/ML VIAL SLOW IVP PRN (09:43)
[2024-03-14] MEDS: Lactulose 10 GM/15 ML Oral Solution PR SCH ×2 (11:33→14:45)
[2024-03-14] MEDS: Magnesium 2 GM/50 ML(in water) 2 GM in Premix 1 BAG IVPB SCH (11:33)
[2024-03-14] MEDS ORDERED: Electrolyte Replacement Protocol FS PRN (12:00)
[2024-03-14] MEDS: Sodium Chloride 0.9% 1,000 ML IV SCH (12:05)
[2024-03-14] MEDS: cefTRIAXone\\ROCEPHIN 1 GM in Sodium Chloride 0.9% 100 ML IVPB SCH (12:08)
[2024-03-14 13:20] LABS: Amphetamine Not Detected (NotDetected); Barbiturates Screen Not Detected (NotDetected); Benzodiazepine Screen Detected (NotDetected); Cocaine Metabolite Screen Not Detected (NotDetected); Methadone Not Detected (NotDetected); Methamphetamine Not Detected (NotDetected); Opiate Screen Not Detected (NotDetected); Oxycodone Screen Not Detected (NotDetected); Phencyclidine (PCP) Not Detected (NotDetected); THC/Cannabinoid Screen Detected (NotDetected); Tricyclic Screen Not Detected (NotDetected)
[2024-03-14 17:38] VITALS: BMI 25.2
[2024-03-15] MEDS ORDERED: Lorazepam 1 MG TAB PO PRN (03:53)
[2024-03-15 07:32] VITALS: BP 170/100
[2024-03-15] MEDS: Lactulose 20 GM (30 mL) UDCUP PO SCH ×2 (11:37→18:03)
[2024-03-16] MEDS ORDERED: Lorazepam 1 MG TAB PO PRN (03:53)
[2024-03-16] MEDS: Pantoprazole DR 40 MG TAB PO SCH (10:07)
[2024-03-16 12:21] VITALS: TEMP 97.8
[2024-03-17] MEDS ORDERED: Lorazepam 0.5 MG TAB PO PRN (03:53)
[2024-03-17] MEDS ORDERED: Thiamine 100 MG TAB PO SCH (09:00)
== END 2024-03-16 14:15 | disposition home or self-care (01) | DRG 443 ==
LOC: ERS 19:52 → T4-A 23:00 → PCU 03-14 04:20 → IMCU/EMU 03-14 13:43
PROVIDERS: ADMIT Student in an Organized Health Care Education/Training Program; ATTEND Hospitalist
DX: K76.82 Hepatic encephalopathy (principal); K70.30 Alcoholic cirrhosis of liver without ascites; Z79.899 Other long term (current) drug therapy; Z95.1 Presence of aortocoronary bypass graft; Z98.890 Other specified postprocedural states; F41.9 Anxiety disorder, unspecified; Z87.891 Personal history of nicotine dependence
CPT/HCPCS: 36415; 70450; 71045; 80053; 80306; 80307; 82140; 82248; 82550; 83605; 83690; 83735; 84100; 84484; 85025; 87040; 93005; 94760; 96374; J0696; J2060; J2470; J3411; J3475; J7030

== ENCOUNTER 2024-03-25 21:48 | Inpatient (IN) | payer MEDICAID, SELFPAY ==
[2024-03-25 23:21] LABS: #Basophils Less than 0.03 10x3/uL (0.0-0.2); %Basophils 0.6 % (0.0-1.0); %Eosinophils 3.6 % (0.0-10.0); %Monocytes 16.1 % (0.0-10.0); %Neutrophils 53.7 % (42.0-75.0); Hemoglobin 10.9 g/dL (14.0-18.0); Mean Corpuscular HGB CONC 34.1 g/dL (32.0-36.0); Mean Corpuscular Hemoglobin 30.1 pg (27.0-31.0); Mean Corpuscular Volume 88.4 fL (78.0-98.0); Mean Platelet Volume 10.9 fL (7.4-10.4); Platelet Count 104 10x3/uL (130-400); RBC Distribution Width 17.1 % (11.5-14.5); Red Blood Cell (RBC) Count 3.62 mill/uL (4.70-6.10)
[2024-03-25 23:31] LABS: ALT (SGPT) 44 U/L (8-55); AST (SGOT) 76 U/L (5-34); Albumin 3.5 g/dL (3.5-5.0); Alkaline Phosphatase 119 U/L (40-110); Anion Gap 13 mmol/L (10-20); BUN (Urea Nitrogen) 27 mg/dL (8.9-20.6); Bilirubin, Total 2.4 mg/dL (0.2-1.2); Calc. Creatinine Clearance 0 mL/min (70-130); Calcium 9.5 mg/dL (7.8-10.44); Carbon Dioxide 23 mmol/L (22-29); Chloride 103 mmol/L (98-107); Estimated GFR 75; Globulin 4.7 g/dL (2.4-3.5); Glucose 99 mg/dL (70-105); Lipase 73 U/L (8-78); Potassium 4.2 mmol/L (3.5-5.1); Protein, Total 8.2 g/dL (6.0-8.3); Sodium 135 mmol/L (136-145)
[2024-03-26 00:12] LABS: Acetaminophen Less than 10 mcg/mL (Less than 10); Alcohol Less than 10.0 mg/dL (Less than 10); CK (CPK) 276 U/L (30-200); Magnesium 2.1 mg/dL (1.6-2.6); Salicylate Less than 8.0 mg/dL (Less than 8.0)
[2024-03-26 00:16] LABS: Troponin I Less than 0.010 ng/mL (< 0.028)
[2024-03-26] MEDS ORDERED: Ondansetron PF 4 MG/2 ML Vial ONE (00:38)
[2024-03-26] MEDS ORDERED: Lactulose 20 GM (30 mL) UDCUP ONE (00:52)
[2024-03-26 04:33] VITALS: BMI 24.3
[2024-03-26] MEDS: Sodium Chloride 0.9% 1,000 ML IV SCH ×2 (05:44→09:02)
[2024-03-26 05:46] LABS: INR-International Normal Ratio 1.3; Prothrombin Time 16.6 sec (12.0-14.7)
[2024-03-26 05:47] LABS: PTT 40.6 sec (22.9-36.1)
[2024-03-26] MEDS ORDERED: Lactulose 20 GM (30 mL) UDCUP PO SCH (09:00)
[2024-03-26] MEDS ORDERED: Rifaximin 550 MG TAB PO SCH (09:00)
[2024-03-26] MEDS: Pantoprazole DR 40 MG TAB PO SCH (09:00)
[2024-03-26] MEDS ORDERED: Rifaximin 200 MG TAB PO SCH (09:00)
[2024-03-26] MEDS: Lactulose 20 GM (30 mL) UDCUP PO SCH (09:00)
[2024-03-26] MEDS: Rifaximin 550 MG TAB PO SCH (09:00)
[2024-03-26 14:54] VITALS: BMI 24.3
[2024-03-26] MEDS: Carvedilol 3.125 MG TAB PO SCH (17:05)
[2024-03-27 03:33] LABS: #Basophils 0.03 10x3/uL (0.0-0.2); %Eosinophils 7.3 % (0.0-10.0); %Lymphocytes 30.4 % (21.0-51.0); %Monocytes 17.3 % (0.0-10.0); %Neutrophils 43.7 % (42.0-75.0); Hematocrit 27.4 % (42.0-52.0); Hemoglobin 9.2 g/dL (14.0-18.0); Mean Corpuscular HGB CONC 33.6 g/dL (32.0-36.0); Mean Corpuscular Hemoglobin 30.3 pg (27.0-31.0); Mean Corpuscular Volume 90.1 fL (78.0-98.0); Mean Platelet Volume 11.6 fL (7.4-10.4); Platelet Count 85 10x3/uL (130-400); RBC Distribution Width 16.5 % (11.5-14.5); Red Blood Cell (RBC) Count 3.04 mill/uL (4.70-6.10)
[2024-03-27 04:17] LABS: ALT (SGPT) 40 U/L (8-55); AST (SGOT) 67 U/L (5-34); Alkaline Phosphatase 114 U/L (40-110); Anion Gap 11 mmol/L (10-20); BUN (Urea Nitrogen) 21 mg/dL (8.9-20.6); Bilirubin, Total 1.9 mg/dL (0.2-1.2); Calc. Creatinine Clearance 126 mL/min (70-130); Calcium 8.4 mg/dL (7.8-10.44); Carbon Dioxide 18 mmol/L (22-29); Chloride 110 mmol/L (98-107); Estimated GFR 113; Globulin 3.8 g/dL (2.4-3.5); Glucose 76 mg/dL (70-105); Potassium 4.1 mmol/L (3.5-5.1); Protein, Total 6.8 g/dL (6.0-8.3); Sodium 135 mmol/L (136-145)
[2024-03-27 10:52] VITALS: BP 127/69; TEMP 97.2
== END 2024-03-27 11:30 | disposition home or self-care (01) | DRG 442 ==
LOC: ERS 21:48 → T4-B 03-26 03:00 → OBSVTOIN 03-26 11:30
PROVIDERS: ADMIT Internal Medicine; ATTEND Internal Medicine
DX: K76.82 Hepatic encephalopathy (principal); D68.9 Coagulation defect, unspecified; I50.32 Chronic diastolic (congestive) heart failure; N17.9 Acute kidney failure, unspecified; Z79.899 Other long term (current) drug therapy; K70.30 Alcoholic cirrhosis of liver without ascites; Z98.890 Other specified postprocedural states
CPT/HCPCS: 36415; 71045; 80053; 80307; 82140; 82550; 83605; 83690; 83735; 84484; 85025; 85610; 85730; 87428; 93005; 96374; G0378; J2405; J7030

== ENCOUNTER 2025-01-02 19:51 | Emergency (ER) | payer BC, OTHER ==
[2025-01-02 21:49] LABS: #Basophils 0.03 10x3/uL (0.0-0.2); #Eosinophils 0.17 10x3/uL (0.0-0.7); #Monocytes 0.69 10x3/uL (0.11-0.59); #Neutrophils 4.76 10x3/uL (1.40-6.50); %Basophils 0.4 % (0.0-1.0); %Eosinophils 2.3 % (0.0-10.0); %Lymphocytes 24.0 % (21.0-51.0); %Monocytes 9.2 % (0.0-10.0); %Neutrophils 63.8 % (42.0-75.0); ALT (SGPT) 37 U/L (Less than 45); AST (SGOT) 62 U/L (11-34); Albumin 3.4 g/dL (3.1-4.5); Alkaline Phosphatase 165 U/L (40-110); Anion Gap 14 mmol/L (10-20); BUN (Urea Nitrogen) 11 mg/dL (8.9-20.6); Bilirubin, Total 1.7 mg/dL (0.3-1.2); Calc. Creatinine Clearance 0 mL/min (70-130); Calcium 8.7 mg/dL (7.8-10.44); Carbon Dioxide 22 mmol/L (22-29); Chloride 109 mmol/L (98-107); Globulin 3.8 g/dL (2.4-3.5); Glucose 88 mg/dL (70-105); Hematocrit 41.4 % (42.0-52.0); Hemoglobin 14.0 g/dL (14.0-18.0); Mean Corpuscular Hemoglobin 30.2 pg (27.0-31.0); Mean Corpuscular Volume 89.2 fL (78.0-98.0); Platelet Count 70 10x3/uL (130-400); Potassium 3.8 mmol/L (3.5-5.1); Red Blood Cell (RBC) Count 4.64 mill/uL (4.70-6.10); Sodium 141 mmol/L (136-145); White Blood Cell (WBC) Count 7.46 10x3/uL (4.8-10.8)
[2025-01-03] MEDS ORDERED: Ketorolac Tromethamine 30 MG (1 mL) VIAL ONE (00:01)
== END 2025-01-03 00:10 | disposition home or self-care (01) ==
LOC: ERS 19:51
DX: J01.90 Acute sinusitis, unspecified (principal); F17.290 Nicotine dependence, other tobacco product, uncomplicated
CPT/HCPCS: 70450; 80053; 85025; 87428; 96374; J1885